=== PATIENT | female | born 1950 | race Caucasian/White ===

== ENCOUNTER 2017-02-05 21:27 | Inpatient (IN) | payer MEDICARE, BC ==
[2017-02-05] MEDS ORDERED: Ondansetron INJ* 2 MG/ML VIAL IV ONE (22:33)
[2017-02-05] MEDS ORDERED: NS 0.9% 1000 ML* 1,000 ML IV ONE (22:33)
[2017-02-05 23:10] LABS: Urine Bacteria Absent (Absent); Urine Bilirubin Negative (Negative); Urine Glucose Negative (Negative); Urine Nitrite Negative (Negative)
[2017-02-05 23:15] LABS: Hematocrit 37 % (35-47); Hemoglobin 12.3 g/dl (12.0-16.0); Mean Corpuscular HGB Conc 34 g/dl (31-36); Mean Corpuscular Hemoglobin 30 pg (27-31); Mean Corpuscular Volume 88 fL (80-97); Mean Platelet Volume 8 um3 (7.4-10.4); Red Blood Count 4.13 10^6/ul (4.0-5.4); Red Cell Distribution Width 14 % (10.5-15); White Blood Count 13.3 10^3/ul (3.5-10.8)
[2017-02-05 23:30] LABS: Albumin 4.2 g/dL (3.2-5.2); BUN/Creatinine Ratio 18.9 (8-20); EGFR African American 56.9 (>60); EGFR Non-African American 44.2 (>60); Globulin 2.9 g/dL (2-4); Potassium 3.9 mmol/L (3.5-5.0); Total Bilirubin 0.7 mg/dL (0.2-1.0); Total Protein 7.1 g/dL (6.4-8.9)
[2017-02-05 23:40] LABS: Troponin I 0.09 ng/mL (<0.04)
[2017-02-06] MEDS ORDERED: Iodixanol* (CONTRAST) 320 MG/ML 100 ML SDV IV ONE (00:16)
--- NOTE | 2017-02-06 02:12 | ED ---
Kizzy Alamo Rebecca, scribed for Valentin Chávez on 02/05/17 at 2226 . Abdominal Pain/Female - HPI Summary HPI Summary: Pt is a 67 y/o F who presents to ED c/o diffuse abdominal pain since yesterday. Pt reports the pain is in "my stomach," particularly worse in the umbilical region. Pain is currently severe, ranked 9/10. Treated with simethicone POTATO PEELER which did not change sx. Sx aggravated by nothing, alleviated by rest. Additionally c/o N/V, decreased PO intake, fever and chills. Denies diarrhea. Reports she has been unable to No PSHx on the abdomen. Reports that she recently stopped Furosemide last week. - History of Current Complaint Chief Complaint: EDAbdPain Stated Complaint: ABD PAIN/FEVER Time Seen by Provider: 02/05/17 22:12 Hx Obtained From: Patient Onset/Duration: Lasting Days - Startred yesterday, Still Present Severity Currently: Severe Pain Intensity: 9 Pain Scale Used: 0-10 Numeric Location: Diffuse - Particularly in the umbilical Aggravating Factor(s): Nothing Alleviating Factor(s): Other: - Rest Associated Signs and Symptoms: Positive: Fever, Nausea, Vomiting, Other: - decreased PO intake, chills Allergies/Adverse Reactions: Allergies Allergy/AdvReac Type Severity Reaction Status Date / Time No Known Allergies Allergy Verified 02/05/17 21:33 PMH/Surg Hx/FS Hx/Imm Hx Endocrine/Hematology History: Reports: Hx Thyroid Disease - Hypothyroid Cardiovascular History: Reports: Hx Hypercholesterolemia, Hx Hypertension Musculoskeletal History: Reports: Hx Arthritis - Cancer History Hx Chemotherapy: No Hx Radiation Therapy: No Infectious Disease History: No Infectious Disease History: Denies: Traveled Outside the [place] in Last 30 Days - Family History Known Family History: Positive: Hypertension, Other - RA - Social History Alcohol Use: None Substance Use Type: Reports: None Smoking Status (MU): Never Smoked Tobacco Review of Systems Positive: Fever, Chills Positive: Abdominal Pain - Diffuse, Vomiting, Nausea, Other - Decreased PO intake. Negative: Diarrhea All Other Systems Reviewed And Are Negative: Yes Physical Exam - Summary Physical Exam Summary: Appearance: Well appearing, no pain distress Skin: warm, dry, reflects adequate perfusion Head/face: normal Eyes: EOMI, BROOKE ENT: normal Neck: supple, nontender Respiratory: CTA, breath sounds present Cardiovascular: RRR, pulses symmetrical Abdomen: umbilicus and RLQ tenderness, soft Bowel: present Musculoskeletal: normal, strength/ROM intact Neuro: normal, sensory motor intact, A&Ox3 Triage Information Reviewed: Yes Vital Signs On Initial Exam: Initial Vitals Temp Pulse Resp BP Pulse Ox 99.1 F 82 16 180/90 97 02/05/17 21:34 02/05/17 21:34 02/05/17 21:34 02/05/17 21:34 02/05/17 21:34 Vital Signs Reviewed: Yes Diagnostics - Vital Signs Vital Signs Temp Pulse Resp BP Pulse Ox 02/05/17 21:34 99.1 F 82 16 180/90 97 - Laboratory Lab Results: Lab Results 02/05/17 02/05/17 02/05/17 Range/Units 22:50 23:03 23:03 WBC 13.3 H (3.5-10.8) 10^3/ul RBC 4.13 (4.0-5.4) 10^6/ul Hgb 12.3 (12.0-16.0) g/dl Hct 37 (35-47) % MCV 88 (80-97) fL MCH 30 (27-31) pg MCHC 34 (31-36) g/dl RDW 14 (10.5-15) % Plt Count 294 (150-450) 10^3/ul MPV 8 (7.4-10.4) um3 Neut % (Auto) 87.1 H (38-83) % Lymph % (Auto) 7.3 L (25-47) % Worth % (Auto) 5.2 (1-9) % Eos % (Auto) 0.1 (0-6) % Baso % (Auto) 0.3 (0-2) % Absolute Neuts (auto) 11.6 H (1.5-7.7) 10^3/ul Absolute Lymphs (auto) 1.0 (1.0-4.8) 10^3/ul Absolute Monos (auto) 0.7 (0-0.8) 10^3/ul Absolute Eos (auto) 0 (0-0.6) 10^3/ul Absolute Basos (auto) 0 (0-0.2) 10^3/ul Absolute Nucleated RBC 0 10^3/ul Nucleated RBC % 0 INR (Anticoag Therapy) 0.90 (0.89-1.11) APTT 28.4 (26.0-36.3) seconds Sodium (133-145) mmol/L Potassium (3.5-5.0) mmol/L Chloride (101-111) mmol/L Carbon Dioxide (22-32) mmol/L Anion Gap (2-11) mmol/L BUN (6-24) mg/dL Creatinine (0.51-0.95) mg/dL Est GFR ( Amer) (>60) Est GFR (Non-Af Amer) (>60) BUN/Creatinine Ratio (8-20) Glucose (70-100) mg/dL Lactic Acid (0.5-2.0) mmol/L Calcium (8.6-10.3) mg/dL Total Bilirubin (0.2-1.0) mg/dL AST (13-39) U/L ALT (7-52) U/L Alkaline Phosphatase (34-104) U/L Troponin I (<0.04) ng/mL Total Protein (6.4-8.9) g/dL Albumin (3.2-5.2) g/dL Globulin (2-4) g/dL Albumin/Globulin Ratio (1-3) Lipase (11.0-82.0) U/L Urine Color Yellow Urine Appearance Cloudy Urine pH 5.0 (5-9) Ur Specific [place] 1.016 (1.010-1.030) Urine Protein 1+(30 mg/dl) H (Negative) Urine Ketones Negative (Negative) Urine Blood Negative (Negative) Urine Nitrate Negative (Negative) Urine Bilirubin Negative (Negative) Urine Urobilinogen Negative (Negative) Ur Leukocyte Esterase 3+ H (Negative) Urine WBC (Auto) 3+(>20/hpf) H (Absent) Urine RBC (Auto) 2+(6-10/hpf) H (Absent) Ur Squamous Epith Cells Present H (Absent) Urine Bacteria Absent (Absent) Urine Glucose Negative (Negative) 02/05/17 02/05/17 Range/Units 23:03 23:03 WBC (3.5-10.8) 10^3/ul RBC (4.0-5.4) 10^6/ul Hgb (12.0-16.0) g/dl Hct (35-47) % MCV (80-97) fL MCH (27-31) pg MCHC (31-36) g/dl RDW (10.5-15) % Plt Count (150-450) 10^3/ul MPV (7.4-10.4) um3 Neut % (Auto) (38-83) % Lymph % (Auto) (25-47) % Worth % (Auto) (1-9) % Eos % (Auto) (0-6) % Baso % (Auto) (0-2) % Absolute Neuts (auto) (1.5-7.7) 10^3/ul Absolute Lymphs (auto) (1.0-4.8) 10^3/ul Absolute Monos (auto) (0-0.8) 10^3/ul Absolute Eos (auto) (0-0.6) 10^3/ul Absolute Basos (auto) (0-0.2) 10^3/ul Absolute Nucleated RBC 10^3/ul Nucleated RBC % INR (Anticoag Therapy) (0.89-1.11) APTT (26.0-36.3) seconds Sodium 137 (133-145) mmol/L Potassium 3.9 (3.5-5.0) mmol/L Chloride 108 (101-111) mmol/L Carbon Dioxide 22 (22-32) mmol/L Anion Gap 7 (2-11) mmol/L BUN 23 (6-24) mg/dL Creatinine 1.22 H (0.51-0.95) mg/dL Est GFR ( Amer) 56.9 (>60) Est GFR (Non-Af Amer) 44.2 (>60) BUN/Creatinine Ratio 18.9 (8-20) Glucose 136 H (70-100) mg/dL Lactic Acid 1.7 (0.5-2.0) mmol/L Calcium 10.0 (8.6-10.3) mg/dL Total Bilirubin 0.70 (0.2-1.0) mg/dL AST 19 (13-39) U/L ALT 37 (7-52) U/L Alkaline Phosphatase 94 (34-104) U/L Troponin I 0.09 H* (<0.04) ng/mL Total Protein 7.1 (6.4-8.9) g/dL Albumin 4.2 (3.2-5.2) g/dL Globulin 2.9 (2-4) g/dL Albumin/Globulin Ratio 1.4 (1-3) Lipase 17 (11.0-82.0) U/L Urine Color Urine Appearance Urine pH (5-9) Ur Specific [place] (1.010-1.030) Urine Protein (Negative) Urine Ketones (Negative) Urine Blood (Negative) Urine Nitrate (Negative) Urine Bilirubin (Negative) Urine Urobilinogen (Negative) Ur Leukocyte Esterase (Negative) Urine WBC (Auto) (Absent) Urine RBC (Auto) (Absent) Ur Squamous Epith Cells (Absent) Urine Bacteria (Absent) Urine Glucose (Negative) Result Diagrams: 02/05/17 23:03 02/05/17 23:03 Lab Statement: Any lab studies that have been ordered have been reviewed, and results considered in the medical decision making process. - Radiology CXR Xray Interpretation: No Acute Changes Radiology Interpretation Completed By: ED Physician - CT CT Abd/Pel CT Interpretation: Positive (See Comments) - Questionable cholecystitis without biliary duct dilation any further evaluate right upper quadrant ultrasound. Probable 7.3 cm left ovarian cyst and 4.8 cm right ovarian cyst, large enough to cause ocarian torsion, which should be furhter evaluated with pelvic ultrasound. Mild bilateral renal scarring. ED physician reviewed this radiology report and agrees. CT Interpretation Completed By: Radiologist - EKG 2246 Cardiac Rate: NL - 74 bpm EKG Rhythm: Sinus Rhythm EKG Interpretation: QS in the inferior leads. Re-Evaluation - Re-Evaluation First Eval Re-Evaluation Time: 01:13 Comment: Discussed CT results and plan to admit Abdominal Pain Fem Course/Dx - Course Course Of Treatment: Pt is a 67 y/o F who presents to ED c/o diffuse abdominal pain since yesterday. Pt reports the pain is in "my stomach," particularly worse in the umbilical region. Pain is currently severe, ranked 9/10. Treated with simethicone POTATO PEELER which did not change sx. Sx aggravated by nothing, alleviated by rest. Additionally c/o N/V, decreased PO intake, fever and chills. Denies diarrhea. Reports she has been unable to No PSHx on the abdomen. Reports that she recently stopped Furosemide last week. CXR reveals no acute findings, as read by ED physician. EKG is sinus rhythm with QS in the inferior leads. CT Abd/Pel reveals "Questionable cholecystitis without biliary duct dilation any further evaluate right upper quadrant ultrasound. Probable 7.3 cm left ovarian cyst and 4.8 cm right ovarian cyst, large enough to cause ocarian torsion, which should be furhter evaluated with pelvic ultrasound. Mild bilateral renal scarring." Troponin of 0.09, WBC of 13.3. Discussed care of pt with Dr. Simmons who accepts pt for admission. She will be admitted with Dx of elevated troponin, renal failure, acute cholecystitis and ovarian cyst. She understands and agrees. Elevated BP noted and advised to f/u with PCP. - Diagnoses Provider Diagnoses: Acute cholecystitis, Elevated troponin, Ovarian cyst, Renal failure - Provider Notifications Discussed Care Of Patient With: Rambo Simmons Time Discussed With Above Provider: 01:05 Instructed by Provider To: Other - Accepts pt for admission - Critical Care Time Critical Care Time: 30-74 min - 30 minutes Discharge - Discharge Plan Condition: Stable Disposition: ADMITTED TO [facility] documentation as recorded by the Kizzy coffey Rebecca accurately reflects the service I personally performed and the decisions made by , Valentin Chávez.
--- NOTE | 2017-02-06 03:23 | HP ---
H&P (Free Text) History and Physical: PCP: Arlin Donald MD Date/Time of Evaluation: 02/06/2017 0330 CC: abdominal pain HPI: Mrs Dalal is a 67F presenting with onset of pressure-like hypogastric abdominal pain Sunday 02/04 in the early afternoon which progressed to include subjective F/C & N/V prompting her to present for evaluation. Emesis was thin yellow without black or bloody content. She denies radiation of the pain, associated SOB, palpitation, light-headedness, sweats, or other issues. She denies exacerbating and alleviating factors. PMedHx HTN CKD stg 3b hypothyroidism Medications Nursing to reconcile. 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 Father passed in his 70s 2nd melanoma. ROS: as above; additionally stable exertional SOB; otherwise reviewed and all were negative Constitutional: NAD, normally developed, super morbidly obese white female vitals: Vital Signs Temp 37.1 C 02/05/17 23:15 Pulse 85 02/06/17 03:31 Resp 18 02/06/17 03:31 BP 175/83 02/06/17 03:31 Pulse Ox 96 02/06/17 03:31 Intake & Output 02/05/17 02/05/17 02/06/17 11:59 23:59 11:59 Intake Total 100 Balance 100 Weight 104.78 kg 104.78 kg Intake: IVPB 100 HEENM: atraumatic; sclera/conjunctiva: non-icteric/clear; hearing: clinically intact; oropharynx: clear, mucosa moist Neck: soft tissue: non-tender; thyroid: normal Pulmonary: clear to auscultation bilaterally, good aeration, no accessory muscle use CV: RR/RR, normal S1S2, no carotid bruit, no jugular venous distention, 2+ B DP/ PT, no edema Abdominal: soft, non-distended, moderate RUQ tenderness with 2nd focus of pain in the LLQ, positive voluntary guarding without no rebound/rigidity, normoactive bowel sounds, no hepatosplenomegaly or masses, no costovertebral angle tenderness Musculoskeletal: general: grossly intact without palpable tenderness Integumental: normal appearance and texture of exposed skin Psychiatric orientation: AA&O to PPS affect: calm mood: cooperative eye contact: fair content: reliable responses: timely insight: fair to good Testing: Lab Results 02/05/17 02/05/17 02/05/17 Range/Units 22:50 23:03 23:03 WBC 13.3 H (3.5-10.8) 10^3/ul RBC 4.13 (4.0-5.4) 10^6/ul Hgb 12.3 (12.0-16.0) g/dl Hct 37 (35-47) % MCV 88 (80-97) fL MCH 30 (27-31) pg MCHC 34 (31-36) g/dl RDW 14 (10.5-15) % Plt Count 294 (150-450) 10^3/ul MPV 8 (7.4-10.4) um3 Neut % (Auto) 87.1 H (38-83) % Lymph % (Auto) 7.3 L (25-47) % Todd % (Auto) 5.2 (1-9) % Eos % (Auto) 0.1 (0-6) % Baso % (Auto) 0.3 (0-2) % Absolute Neuts (auto) 11.6 H (1.5-7.7) 10^3/ul Absolute Lymphs (auto) 1.0 (1.0-4.8) 10^3/ul Absolute Monos (auto) 0.7 (0-0.8) 10^3/ul Absolute Eos (auto) 0 (0-0.6) 10^3/ul Absolute Basos (auto) 0 (0-0.2) 10^3/ul Absolute Nucleated RBC 0 10^3/ul Nucleated RBC % 0 INR (Anticoag Therapy) 0.90 (0.89-1.11) APTT 28.4 (26.0-36.3) seconds Sodium (133-145) mmol/L Potassium (3.5-5.0) mmol/L Chloride (101-111) mmol/L Carbon Dioxide (22-32) mmol/L Anion Gap (2-11) mmol/L BUN (6-24) mg/dL Creatinine (0.51-0.95) mg/dL Est GFR ( Amer) (>60) Est GFR (Non-Af Amer) (>60) BUN/Creatinine Ratio (8-20) Glucose (70-100) mg/dL Lactic Acid (0.5-2.0) mmol/L Calcium (8.6-10.3) mg/dL Total Bilirubin (0.2-1.0) mg/dL AST (13-39) U/L ALT (7-52) U/L Alkaline Phosphatase (34-104) U/L Troponin I (<0.04) ng/mL Total Protein (6.4-8.9) g/dL Albumin (3.2-5.2) g/dL Globulin (2-4) g/dL Albumin/Globulin Ratio (1-3) Lipase (11.0-82.0) U/L Urine Color Yellow Urine Appearance Cloudy Urine pH 5.0 (5-9) Ur Specific [place] 1.016 (1.010-1.030) Urine Protein 1+(30 mg/dl) H (Negative) Urine Ketones Negative (Negative) Urine Blood Negative (Negative) Urine Nitrate Negative (Negative) Urine Bilirubin Negative (Negative) Urine Urobilinogen Negative (Negative) Ur Leukocyte Esterase 3+ H (Negative) Urine WBC (Auto) 3+(>20/hpf) H (Absent) Urine RBC (Auto) 2+(6-10/hpf) H (Absent) Ur Squamous Epith Cells Present H (Absent) Urine Bacteria Absent (Absent) Urine Glucose Negative (Negative) 02/05/17 02/05/17 Range/Units 23:03 23:03 WBC (3.5-10.8) 10^3/ul RBC (4.0-5.4) 10^6/ul Hgb (12.0-16.0) g/dl Hct (35-47) % MCV (80-97) fL MCH (27-31) pg MCHC (31-36) g/dl RDW (10.5-15) % Plt Count (150-450) 10^3/ul MPV (7.4-10.4) um3 Neut % (Auto) (38-83) % Lymph % (Auto) (25-47) % Todd % (Auto) (1-9) % Eos % (Auto) (0-6) % Baso % (Auto) (0-2) % Absolute Neuts (auto) (1.5-7.7) 10^3/ul Absolute Lymphs (auto) (1.0-4.8) 10^3/ul Absolute Monos (auto) (0-0.8) 10^3/ul Absolute Eos (auto) (0-0.6) 10^3/ul Absolute Basos (auto) (0-0.2) 10^3/ul Absolute Nucleated RBC 10^3/ul Nucleated RBC % INR (Anticoag Therapy) (0.89-1.11) APTT (26.0-36.3) seconds Sodium 137 (133-145) mmol/L Potassium 3.9 (3.5-5.0) mmol/L Chloride 108 (101-111) mmol/L Carbon Dioxide 22 (22-32) mmol/L Anion Gap 7 (2-11) mmol/L BUN 23 (6-24) mg/dL Creatinine 1.22 H (0.51-0.95) mg/dL Est GFR ( Amer) 56.9 (>60) Est GFR (Non-Af Amer) 44.2 (>60) BUN/Creatinine Ratio 18.9 (8-20) Glucose 136 H (70-100) mg/dL Lactic Acid 1.7 (0.5-2.0) mmol/L Calcium 10.0 (8.6-10.3) mg/dL Total Bilirubin 0.70 (0.2-1.0) mg/dL AST 19 (13-39) U/L ALT 37 (7-52) U/L Alkaline Phosphatase 94 (34-104) U/L Troponin I 0.09 H* (<0.04) ng/mL Total Protein 7.1 (6.4-8.9) g/dL Albumin 4.2 (3.2-5.2) g/dL Globulin 2.9 (2-4) g/dL Albumin/Globulin Ratio 1.4 (1-3) Lipase 17 (11.0-82.0) U/L Urine Color Urine Appearance Urine pH (5-9) Ur Specific [place] (1.010-1.030) Urine Protein (Negative) Urine Ketones (Negative) Urine Blood (Negative) Urine Nitrate (Negative) Urine Bilirubin (Negative) Urine Urobilinogen (Negative) Ur Leukocyte Esterase (Negative) Urine WBC (Auto) (Absent) Urine RBC (Auto) (Absent) Ur Squamous Epith Cells (Absent) Urine Bacteria (Absent) Urine Glucose (Negative) ECG, personally reviewed: NSR rate 74, no ischemia CXR, personally reviewed: no acute process CT abd/pel W, personally reviewed: IMPRESSION: Questionable cholecystitis without biliary duct dilatation any further evaluate right upper quadrant ultrasound. Probable 7.3cm left ovarian cyst and 4.8cm right ovarian cyst, large enough to cause ovarian torsion, which should be further evaluated with pelvic ultrasound. Mild bilateral renal scarring. US abdomen limited, RUQ: IMPRESSION: High suspicion for cholecystitis secondary to 2.6cm stone in the gallbladder neck. Enlarged fatty liver. US transabdominal/transvaginal: IMPRESSION: 4.7cm simple right ovarian cyst and 6.8cm simple left ovarian cyst without torsion or free fluid. Impression: 67F presenting with abdominal pain found to have acute cholecystitis on CT & US along with an incidental finding of indeterminate troponin DIAGNOSIS & PLAN Primary acute cholecystitis : IVFs : ABX : pain control : surgical consult in AM : supportive care elevated troponin : suspect demand ischemia : trend : check ECHO : telemetry : supplemental oxygen : aspirin : metoprolol : consider cardiology consult in AM for pre-operative evaluation Secondary HTN : review meds once reconciled hypothyroidism : review meds once reconciled Admission Rational: inpatient for acute cholecystectomy and indeterminate troponin not expected to be adequately evaluated and managed w/i 48h to allow for discharge DVTp: SCDs Code Status: full HCP: [facility]
[2017-02-06] MEDS ORDERED: Acetaminophen TAB* 325 MG PO PRN (03:53)
[2017-02-06] MEDS ORDERED: Melatonin (NF) 3 MG TAB PO PRN (04:18)
[2017-02-06] MEDS ORDERED: Metoprolol Tartrate TAB* 25 MG PO ONE (04:20)
[2017-02-06] MEDS ORDERED: Ondansetron INJ* 2 MG/ML VIAL IV PRN (04:20)
[2017-02-06] MEDS ORDERED: Aspirin Low Dose CHEW TAB* 81 MG PO ONE (04:20)
[2017-02-06] MEDS: NS 0.9% 1000 ML* 1,000 ML IV SCH ×2 (04:42→22:43)
[2017-02-06] MEDS: Omeprazole CAP* 20 MG PO SCH (05:07)
[2017-02-06] MEDS: HYDROmorphone* 1 MG/ML 1 ML SYR IV PRN (05:07)
[2017-02-06 05:33] LABS: Hematocrit 35 % (35-47); Hemoglobin 11.5 g/dl (12.0-16.0); Mean Corpuscular HGB Conc 33 g/dl (31-36); Mean Corpuscular Hemoglobin 29 pg (27-31); Mean Corpuscular Volume 88 fL (80-97); Mean Platelet Volume 8 um3 (7.4-10.4); Red Blood Count 3.96 10^6/ul (4.0-5.4); Red Cell Distribution Width 13 % (10.5-15); White Blood Count 11.7 10^3/ul (3.5-10.8)
[2017-02-06 05:46] LABS: Calcium 9.5 mg/dL (8.6-10.3); EGFR African American 58.5 (>60); EGFR Non-African American 45.5 (>60); Potassium 3.8 mmol/L (3.5-5.0)
[2017-02-06 05:57] LABS: Troponin I 0.12 ng/mL (<0.04)
[2017-02-06] MEDS: Levothyroxine TAB* 125 MCG TAB PO SCH (06:54)
--- NOTE | 2017-02-06 07:42 | RAD ---
INDICATION: Abdominal pain. COMPARISON: There are no prior studies available for comparison. TECHNIQUE: Dual-energy PA and lateral views of the chest were obtained. FINDINGS: The heart is within normal limits in size. Mediastinal and hilar contours appear within normal limits. The lungs are underinflated. There are small linear densities at the left lung base most consistent with subsegmental atelectasis. The lungs are otherwise clear. No pleural effusion is seen. No free intraperitoneal air is noted. There is widening of the left acromioclavicular joint most consistent with chronic AC separation. IMPRESSION: NO EVIDENCE FOR ACTIVE CARDIOPULMONARY DISEASE.
--- NOTE | 2017-02-06 07:55 | RAD ---
CLINICAL HISTORY: Diverticulitis, abdominal pain COMPARISON: None TECHNIQUE: Multiple contiguous axial CT scans were obtained of the abdomen and pelvis after the administration of intravenous contrast. Coronal and sagittal multiplanar reformations are submitted for review. Oral contrast was not administered. Delayed images were obtained through the abdomen and pelvis. FINDINGS: LUNG BASES: The lung bases are clear. LIVER: The liver is diffusely low in attenuation compared to the spleen. There are no focal hepatic parenchymal masses. The liver measures 21 cm in long axis. BILE DUCTS: There is no intrahepatic or extrahepatic biliary dilatation. GALLBLADDER: A gallstone is noted. There is minimal gallbladder wall thickening. PANCREAS: The pancreas is normal, without mass or ductal dilatation. SPLEEN: Normal in size and appearance. UPPER GI TRACT: Evaluation of the gastrointestinal tract is limited by incomplete gastric distention. The upper GI tract is unremarkable. SMALL BOWEL AND MESENTERY: The small bowel is normal in contour, course, and caliber. There is no obstruction or dilatation. COLON: The colon is normal in contour, course, caliber. There is no pericolonic inflammatory change. ADRENALS: Normal bilaterally. KIDNEYS: The kidneys are normal in shape, size, contour, and axis. There is no hydronephrosis or nephrolithiasis. BLADDER: The bladder is smooth in contour. PELVIC ORGANS: The uterus is fibroid. There is a 6.7 cm left ovarian cyst. There is a 4.1 cm right ovarian cyst. AORTA: The aorta is normal. IVC: Unremarkable LYMPH NODES: There is no lymphadenopathy by size criteria. ABDOMINAL WALL: There is no evidence for abdominal wall hernia. BONES AND SOFT TISSUES: Degenerative changes are noted. The patient is status post left hip arthroplasty OTHER: None IMPRESSION: 1. CHOLELITHIASIS WITH MILD GALLBLADDER WALL THICKENING. 2. HEPATOMEGALY WITH FATTY INFILTRATION OF THE LIVER. 3. FIBROID UTERUS. 4. BILATERAL OVARIAN CYSTS MEASURING UP TO 6.7 CM.
--- NOTE | 2017-02-06 08:02 | RAD ---
INDICATION: Bilateral pelvic pain COMPARISON: Same day CT of the abdomen and pelvis that demonstrates to low attenuation structures in the bilateral adnexa. TECHNIQUE: Real-time transabdominal and transvaginal ultrasound examination of the female pelvis including grayscale and Doppler color flow imaging. FINDINGS: Uterus: The uterus is normal in size and echogenicity measuring 8.1 x 4.4 x 6.6 cm. The endometrial stripe is smooth and uniform measuring 6 mm in thickness. Ovaries: The right and left ovary measure 8.8 x 7.0 x 7.2 cm and 5.3 x 6.1 x 6.3 cm, respectively. Normal arterial and venous waveforms are identified. Within the left ovary there is an anechoic and avascular structure measuring 6.8 x 5.5 x 5.6 cm. In the right ovary there is a more echogenic and avascular structure measuring 4.6 x 4.7 x 5.3 cm. There is no free fluid in the cul-de-sac. IMPRESSION: Large anechoic and avascular structures in the bilateral ovaries are abnormal for a postmenopausal woman please correlate to hormone replacement therapy. Depending on other clinical parameters further characterization can be made with MRI of the pelvis with and without contrast. If no further imaging is acquired at this time short-term interval sonographic follow-up imaging is advised. Management of Asymptomatic Ovarian and Other Adnexal Cysts Imaged at US: Society of Radiologists in Ultrasound Consensus Conference Statement, Christi Coto et al., Radiology, Feb 2010, Vol. 256: 943-954. [email or web address]/doi/[email or web address]
--- NOTE | 2017-02-06 08:13 | RAD ---
HISTORY: Right upper quadrant pain. COMPARISONS: Same day CT of the abdomen and pelvis TECHNIQUE: Multiple transverse and longitudinal ultrasound images were obtained of the right upper quadrant. FINDINGS: LIVER: The liver exhibits mild increased homogenous echogenicity and is top normal measuring 19.7 cm in greatest dimension. Normal hepatic and portal venous blood flow is duplicated with color flow imaging. There is no gross intrahepatic biliary duct dilatation. GALLBLADDER AND EXTRAHEPATIC BILIARY DUCT: Within the dependent portion of the gallbladder there is a echogenic and shadowing stone measuring 2.6 cm in greatest dimension. The dean are mildly thickened measuring 4 mm in thickness. There is trace pericholecystic fluid. The common bile duct measures a maximum diameter of 5 mm. PANCREAS: Overlying bowel gas prevents meaningful visualization of the pancreas. RIGHT KIDNEY: The right kidney is normal in size, morphology and echogenicity. AORTA AND IVC: The visualized portions are normal in appearance and not pathologically dilated. IMPRESSION: 1. IN THE CORRECT CLINICAL SETTING THESE SONOGRAPHIC FINDINGS COULD BE CONSISTENT WITH ACUTE CHOLECYSTITIS. IF CLINICALLY WARRANTED FURTHER OBJECTIVE CHARACTERIZATION CAN BE MADE WITH A HIDA SCAN. 2. LIKELY HEPATIC STEATOSIS OR OTHER CHRONIC INFILTRATIVE DISEASE OF THE LIVER.
--- NOTE | 2017-02-06 08:39 | ECHO ---
Patient: JAMI REAL [facility] Rec#: [id number] : 1950 Date: 02/06/2017 Age: 67y Height: 142.24 cm / 56.0 in Weight: 105.69 kg / 232.9 lbs Sex: F BSA: 1.89 Room#: [facility] Admit Date#: 02/06/2017 Type: Inpatient Referring: Rambo Simmons MD Reading: Lucius Stroud MD Converter Skimmer: [facility] Indication: SOB, elevated troponin levels. BP: 161/69 HR: 72 Rhythm: NSR Findings History: HTN, CKD IIIb, hypothyroidism, former heavy ETOH use, HLD. Technical Comments: The study quality is fair. The study is technically limited due to patient body habitus. Completed at 0830. Left Ventricle: The left ventricular chamber size is normal. Mild concentric left ventricular hypertrophy is observed. Global left ventricular wall motion and contractility are within normal limits. There is normal left ventricular systolic function. The estimated ejection fraction is 60-65%. Abnormal left ventricular diastolic function is observed. There is an E to A reversal in the mitral valve flow pattern suggestive of diastolic dysfunction. Left Atrium: The left atrial chamber size is normal. Right Ventricle: Moderator Band present. The right ventricular cavity size is normal. The right ventricular global systolic function is normal. Right Atrium: The right atrial cavity size is normal. Aortic Valve: The aortic valve is trileaflet. The aortic valve leaflets are mildly thickened. There is a trace of aortic regurgitation. There is no evidence of aortic stenosis. Mitral Valve: The mitral valve leaflets are mildly thickened. There is trace to mild mitral regurgitation. There is no evidence of mitral stenosis. Tricuspid Valve: The tricuspid valve leaflets are normal. There is mild to moderate tricuspid regurgitation. There is evidence of mild pulmonary hypertension. There is no tricuspid stenosis. Pulmonic Valve: The pulmonic valve appears normal. There is mild pulmonic regurgitation. There is no pulmonic stenosis. Pericardium: There is no significant pericardial effusion. A pericardial fat pad is visualized. Aorta: There is no dilatation of the ascending aorta. There is no dilatation of the aortic arch. There is no dilation of the aortic root. Pulmonary Artery: The main pulmonary artery is not well visualized. Venous: The inferior vena cava appears normal in size. There is a greater than 50% respiratory change in the inferior vena cava dimension. Summary: There was not any prior study for comparison. Conclusions Global left ventricular wall motion and contractility are within normal limits. There is normal left ventricular systolic function. The estimated ejection fraction is 60-65%. There is an E to A reversal in the mitral valve flow pattern suggestive of diastolic dysfunction. The right ventricular global systolic function is normal. There is a trace of aortic regurgitation. There is no evidence of aortic stenosis. There is trace to mild mitral regurgitation. There is mild to moderate tricuspid regurgitation. There is evidence of mild pulmonary hypertension. There is no significant pericardial effusion. Measurements Name Value Normal Range RVIDd (AP) 2D 3.2 cm (0.9 - 2.6) RVDdMajor (2D) 4.1 cm (2.2 - 4.4) RAd ISD 4CH 4.7 cm (3.4 - 4.9) RA (A4C)W 3.7 cm (2.9 - 4.6) IVSd (2D) 1.1 cm (0.6 - 1) LVPWd (2D) 1.1 cm (0.6 - 1) LVIDd (2D) 4.3 cm (3.6 - 5.4) LVIDs (2D) 2.3 cm - LV FS (2D) 47 % (25 - 45) Aortic Annulus 2 cm (1.4 - 2.6) Ao root diameter (2D) 2.5 cm (2.1 - 3.5) Ascending Ao 3.2 cm (2.1 - 3.4) Aortic arch 2.3 cm (1.8 - 3.4) LA dimension (AP) 2D 3.8 cm (2.3 - 3.8) LAd ISD 4CH 5.3 cm (2.9 - 5.3) LA ISD 4CH W 4.1 cm (2.5 - 4.5) Name Value Normal Range LA ESV SP 4CH (A/L) 56 ml - LA ESV SP 2CH (A/L) 56 ml - LA ESV BP (A/L) 56 ml - LA ESV BP (A/L) index 29.4 ml/m2 - LA ESV SP 4CH (MOD) 51 ml - LA ESV SP 2CH (MOD) 52 ml - Name Value Normal Range MV E-wave Vmax 0.92 m/sec - MV deceleration time 237.5 msec - MV A-wave Vmax 1.06 m/sec - MV E:A ratio 0.87 ratio - LV septal e' Vmax 0.09 m/sec - LV lateral e' Vmax 0.09 m/sec - LV E:e' septal ratio 10.22 ratio - LV E:e' lateral ratio 10.22 ratio - Name Value Normal Range AV Vmax 2.2 m/sec - AV VTI 42.4 cm - AV peak gradient 19.11 mmHg - AV mean gradient 7.97 mmHg - LVOT Vmax 1.2 m/sec - LVOT VTI 30 cm - LVOT peak gradient 5.9 mmHg - LVOT mean gradient 3.72 mmHg - DRISS Vmax 0.9 m/sec - Name Value Normal Range TR Vmax 2.9 m/sec - TR peak gradient 34 mmHg - RAP 3 mmHg - RVSP 37 mmHg - IVC diameter 1.5 cm - Name Value Normal Range PV Vmax 1.22 m/sec - PV peak gradient 5.93 mmHg - CO end-diastolic Vmax 1.54 m/sec -
[2017-02-06] MEDS: Lisinopril TAB* 10 MG PO SCH (08:40)
[2017-02-06] MEDS: Atorvastatin* 20 MG TAB PO SCH (08:40)
[2017-02-06] MEDS: Spironolactone TAB* 25 MG PO SCH (08:41)
[2017-02-06] MEDS: Docusate CAP* 100 MG PO SCH ×2 (08:41→22:00)
--- NOTE | 2017-02-06 11:29 | CONS ---
CONSULTATION REPORT: DATE OF CONSULTATION: 02/06/17 INDICATION FOR CONSULTATION: Abnormal troponin level. HISTORY OF PRESENT ILLNESS: The patient is a 67-year-old female with a history of mild renal insuff iciency, obesity, hypertension, hypothyroidism, who was admitted to the hospital with cholecystitis. The patient states that yesterday she was at home. She started having severe right upper quadrant pain with fevers and chills, nausea and vomiting. She came to the emergency room. Gallbladder ult rasound showed thickening of the gallbladder with gallstones. [facility] She was given IV antibiotics and kept n.p.o. She did not require an NG tube. The p atient's initial troponin level was 0.09. Second troponin level was 0.13. Third troponin 0.12. e patient's EKG shows normal sinus rhythm with normal axis and intervals. Her echocardiogram today demonstrated normal LV size and systolic function and no significant valvular abnormalities. In speaking with the patient, I cannot elicit any specific cardiac symptoms in the last month. She denied any chest pain. She denied any shortness of breath. She denied any orthopnea or PND. She d enied any palpitations. The patient does have significant obesity. Overall her activity level is s everely limited. She is unable walk up flight of stairs without stopping multiple times because of her weight. PAST MEDICAL HISTORY: Significant for hypertension, hypothyroidism, mild renal insufficiency. PAST SURGICAL HISTORY: Left total hip replacement, left shoulder surgery, section x3. ALLERGIES: No known drug allergies. OUTPATIENT MEDICATIONS: 1. Atenolol 25 mg a day. 2. Tramadol 50 mg three times a day as needed. 3. Benazepril 20 mg a day. 4. Atorvastatin 20 mg a day. 5. Spironolactone 25 mg a day. 6. Levoxyl 125 mcg a day. SOCIAL HISTORY: She is . She does have two daughters that live in the area. She denies any tobacco or alcohol use. She is retired. FAMILY HISTORY: Noncontributory. PHYSICAL EXAMINATION: Height is 4 feet 8 inches, weight is 232 pounds. Temperature 98.4, heart rate is 71, blood pressure 160/81, respiratory rate is 18, oxygen saturation 95% on room air. Sclerae a nicteric. Oropharynx is pink without erythema. Carotids are 2+ without bruits. JVD is normal. Th yroid is normal. Cardiac Exam: S1, S2 without any murmurs, rubs or gallops. Lungs: Clear to auscu ltation bilaterally. There is no dullness to percussion. Abdomen is obese, soft, mild right upper quadrant tenderness. There are decreased bowel sounds. There is no hepatosplenomegaly. Extremities show no edema. She has 2+ pulses throughout. The patient is awake and alert and oriented. She mo ves all 4 extremities equally. DIAGNOSTIC STUDIES/LAB DATA: White count 11.7, hemoglobin 11, hematocrit 35, platelet count 281. C hemistries are within normal limits. BUN 19, creatinine 1.19. Troponin levels are as above. AST and ALT are within normal limits. Again, her echocardiogram shows normal LV size and systolic function. No significant valvular abnor malities. EKG shows normal sinus rhythm with normal axis and intervals. CT of the abdomen shows ch olelithiasis with thickening of the gallbladder wall. IMPRESSION: This is a 67-year-old female admitted to the hospital with cholecystitis. The patient does have minimally elevated troponin levels of unclear significance. Her echocardiogram and EKG ar e unremarkable. The patient's overall activity level is severely limited. Thus, I believe a stress test is warranted prior to going to the operating room to risk stratify her for her procedure. Ris ks and benefits of the stress test were described in detail. The patient is willing to proceed. [id number]/[facility] #: [id number]
--- NOTE | 2017-02-06 12:52 | PN ---
Progress Note - Progress Note Date of Service: 02/06/17 SOAP: Subjective: [Pt presents laying on recliner surrounded by family members and speaking with Dr. Rankin. Pt appears comfortable and abdominal pain has diminished to 0/10 since arriving to the ER yesterday. Her only current complaint is a headache that started yesterday in the ER. Severe, sharp and constant pain started abruptly on Sunday. Pt admits to eating pancakes and infante on Sunday morning, hours after the pain started. Later that night she began to vomit "yellow foam. " Pt denies any previous episodes similar to this one. Concerning her elevated troponin level, pt admits to being followed by a clay washer due to her HTN and CKD. She had a stress test "years ago" which was negative. ] Objective: [ Vital Signs - 8 hr 02/06/17 02/06/17 02/06/17 06:07 07:20 08:00 Temperature 98.4 F Pulse Rate 71 Respiratory 18 24 26 Rate Blood Pressure 159/81 (mmHg) O2 Sat by Pulse 95 Oximetry Intake & Output 02/04/17 02/05/17 02/06/17 02/07/17 06:59 06:59 06:59 06:59 Intake Total 1100 300 Balance 1100 300 Weight 232 lb 11.2 oz 232 lb 11.2 oz Intake: IV Fluids 1000 IVPB 100 Oral 0 300 Other: Estimated Void Medium # Bowel Movements 0 # Voids 1 Laboratory Tests 02/05/17 02/05/17 02/06/17 22:50 23:03 03:55 WBC RBC Hgb Neut % (Auto) Lymph % (Auto) Absolute Neuts (auto) Creatinine 1.22 H Glucose 136 H Troponin I 0.09 H* 0.13 H* Urine Protein 1+(30 mg/dl) H Ur Leukocyte Esterase 3+ H Urine WBC (Auto) 3+(>20/hpf) H Urine RBC (Auto) 2+(6-10/hpf) H Ur Squamous Epith Cells Present H 02/06/17 02/06/17 04:55 04:55 WBC 11.7 H RBC 3.96 L Hgb 11.5 L Neut % (Auto) 84.4 H Lymph % (Auto) 9.1 L Absolute Neuts (auto) 9.8 H Creatinine 1.19 H Glucose 146 H Troponin I 0.12 H* Urine Protein Ur Leukocyte Esterase Urine WBC (Auto) Urine RBC (Auto) Ur Squamous Epith Cells PEX General: 67 y/o morbid obese women laying comfortably in recliner in NAD. Tmax of 99.1 F over last 24 hrs. Heart: RRR Lungs: CTA Abdomen: +BS. Slightly tympanic to percussion in RUQ. Nontender to palpate in all for quadrants. Positive Granado's sign Extremities: mild ankle edema. ] Assessment: [acute cholecystitis elevated troponin] Plan: [nuclear stress test planned for later today. Update Jay Thurman and surgical team about possible elective cholecystectomy. ]
[2017-02-06] MEDS: traMADol TAB* 50 MG PO PRN ×2 (13:06→19:13)
[2017-02-06] MEDS ORDERED: Morphine INJ* 2 MG/ML 1 ML SYRINGE IV ONE (16:00)
[2017-02-06] MEDS: oxyCODONE TAB* 5 MG TAB PO PRN ×2 (16:02→22:43)
--- NOTE | 2017-02-06 17:05 | PN ---
Subjective Date of Service: 02/06/17 Interval History: Seen with son, daughter and daughter in law Pain well controlled Feels hungry Pain was previously diffuse now localized to RUQ No emesis since yesterday Objective Active Medications: Acetaminophen (Tylenol Tab*) 650 mg PO Q6H PRN PRN Reason: FEVER/PAIN Atenolol (Tenormin Tab*) 25 mg PO DAILY [facility] Atorvastatin Calcium (Lipitor*) 20 mg PO DAILY [facility] Last Admin: 02/06/17 08:40 Dose: 20 mg Docusate Sodium (Colace Cap*) 200 mg PO BID [facility] Last Admin: 02/06/17 08:41 Dose: 200 mg Hydromorphone HCl (Dilaudid Iv*) 0.5 mg IV Q2H PRN PRN Reason: PAIN Last Admin: 02/06/17 05:07 Dose: 0.5 mg Sodium Chloride (Ns 0.9% 1000 Ml*) 1,000 mls @ 125 mls/hr IV PER RATE [facility] Last Admin: 02/06/17 04:42 Dose: 125 mls/hr Piperacillin Sod/Tazobactam (Sod 3.375 gm/ Sodium Chloride) 100 mls @ 25 mls/ hr IVPB Q8H [facility] Last Admin: 02/06/17 14:52 Dose: 25 mls/hr Levothyroxine Sodium (Synthroid Tab*) 125 mcg PO DAILY@0600 [facility] Last Admin: 02/06/17 06:54 Dose: 125 mcg Lisinopril (Prinivil Tab*) 20 mg PO DAILY [facility] Last Admin: 02/06/17 08:40 Dose: 20 mg Melatonin (Melatonin (Nf)) 3 mg PO BEDTIME PRN; Protocol PRN Reason: Sleep Omeprazole (Prilosec Cap*) 20 mg PO DAILY@0600 [facility] Last Admin: 02/06/17 05:07 Dose: 20 mg Ondansetron HCl (Zofran Inj*) 4 mg IV Q6H PRN PRN Reason: NAUSEA Oxycodone HCl (Roxycodone Tab*) 10 mg PO Q4H PRN PRN Reason: PAIN Last Admin: 02/06/17 16:02 Dose: 10 mg Spironolactone (Aldactone Tab*) 25 mg PO DAILY [facility] Last Admin: 02/06/17 08:41 Dose: 25 mg Tramadol HCl (Ultram*) 50 mg PO TID PRN PRN Reason: PAIN Last Admin: 02/06/17 13:06 Dose: 50 mg Vital Signs 02/06/17 02/06/17 02/06/17 04:00 04:23 05:07 Temperature 97.7 F Pulse Rate 84 85 Respiratory 18 18 Rate Blood Pressure 159/89 161/69 (mmHg) O2 Sat by Pulse 95 98 Oximetry 02/06/17 02/06/17 02/06/17 06:07 07:20 08:00 Temperature 98.4 F Pulse Rate 71 Respiratory 18 24 26 Rate Blood Pressure 159/81 (mmHg) O2 Sat by Pulse 95 Oximetry 02/06/17 02/06/17 02/06/17 11:35 13:06 15:33 Temperature 98.6 F 98.3 F Pulse Rate 71 79 Respiratory 24 26 22 Rate Blood Pressure 162/73 149/76 (mmHg) O2 Sat by Pulse 96 97 Oximetry 02/06/17 16:02 Temperature Pulse Rate Respiratory 24 Rate Blood Pressure (mmHg) O2 Sat by Pulse Oximetry Oxygen Devices in Use Now: Nasal Cannula Appearance: NAD, sitting in chair Eyes: No Scleral Icterus, PERRLA Ears/Nose/Mouth/Throat: Clear Oropharnyx, Mucous Membranes Moist Neck: NL Appearance and Movements; NL JVP, Trachea Midline Respiratory: Symmetrical Chest Expansion and Respiratory Effort, Clear to Auscultation Cardiovascular: RRR, - - soft [place] RUSB Abdominal: No Hepatosplenomegaly, - - soft, TTP RUQ, ND, +bs Lymphatic: No Cervical Adenopathy Extremities: No Edema, No Clubbing, Cyanosis Skin: No Rash or Ulcers Neurological: Alert and Oriented x 3, - - [id number] Result Diagrams: 02/06/17 04:55 02/06/17 04:55 Additional Lab and Data: Lab Results 02/05/17 02/05/17 02/05/17 Range/Units 22:50 23:03 23:03 WBC 13.3 H (3.5-10.8) 10^3/ul RBC 4.13 (4.0-5.4) 10^6/ul Hgb 12.3 (12.0-16.0) g/dl Hct 37 (35-47) % MCV 88 (80-97) fL MCH 30 (27-31) pg MCHC 34 (31-36) g/dl RDW 14 (10.5-15) % Plt Count 294 (150-450) 10^3/ul MPV 8 (7.4-10.4) um3 Neut % (Auto) 87.1 H (38-83) % Lymph % (Auto) 7.3 L (25-47) % [place] % (Auto) 5.2 (1-9) % Eos % (Auto) 0.1 (0-6) % Baso % (Auto) 0.3 (0-2) % Absolute Neuts (auto) 11.6 H (1.5-7.7) 10^3/ul Absolute Lymphs (auto) 1.0 (1.0-4.8) 10^3/ul Absolute Monos (auto) 0.7 (0-0.8) 10^3/ul Absolute Eos (auto) 0 (0-0.6) 10^3/ul Absolute Basos (auto) 0 (0-0.2) 10^3/ul Absolute Nucleated RBC 0 10^3/ul Nucleated RBC % 0 INR (Anticoag Therapy) 0.90 (0.89-1.11) APTT 28.4 (26.0-36.3) seconds Sodium (133-145) mmol/L Potassium (3.5-5.0) mmol/L Chloride (101-111) mmol/L Carbon Dioxide (22-32) mmol/L Anion Gap (2-11) mmol/L BUN (6-24) mg/dL Creatinine (0.51-0.95) mg/dL Est GFR ( Amer) (>60) Est GFR (Non-Af Amer) (>60) BUN/Creatinine Ratio (8-20) Glucose (70-100) mg/dL Lactic Acid (0.5-2.0) mmol/L Calcium (8.6-10.3) mg/dL Total Bilirubin (0.2-1.0) mg/dL AST (13-39) U/L ALT (7-52) U/L Alkaline Phosphatase (34-104) U/L Troponin I (<0.04) ng/mL Total Protein (6.4-8.9) g/dL Albumin (3.2-5.2) g/dL Globulin (2-4) g/dL Albumin/Globulin Ratio (1-3) Lipase (11.0-82.0) U/L Urine Color Yellow Urine Appearance Cloudy Urine pH 5.0 (5-9) Ur Specific [place] 1.016 (1.010-1.030) Urine Protein 1+(30 mg/dl) H (Negative) Urine Ketones Negative (Negative) Urine Blood Negative (Negative) Urine Nitrate Negative (Negative) Urine Bilirubin Negative (Negative) Urine Urobilinogen Negative (Negative) Ur Leukocyte Esterase 3+ H (Negative) Urine WBC (Auto) 3+(>20/hpf) H (Absent) Urine RBC (Auto) 2+(6-10/hpf) H (Absent) Ur Squamous Epith Cells Present H (Absent) Urine Bacteria Absent (Absent) Urine Glucose Negative (Negative) 02/05/17 02/05/17 Range/Units 23:03 23:03 WBC (3.5-10.8) 10^3/ul RBC (4.0-5.4) 10^6/ul Hgb (12.0-16.0) g/dl Hct (35-47) % MCV (80-97) fL MCH (27-31) pg MCHC (31-36) g/dl RDW (10.5-15) % Plt Count (150-450) 10^3/ul MPV (7.4-10.4) um3 Neut % (Auto) (38-83) % Lymph % (Auto) (25-47) % [place] % (Auto) (1-9) % Eos % (Auto) (0-6) % Baso % (Auto) (0-2) % Absolute Neuts (auto) (1.5-7.7) 10^3/ul Absolute Lymphs (auto) (1.0-4.8) 10^3/ul Absolute Monos (auto) (0-0.8) 10^3/ul Absolute Eos (auto) (0-0.6) 10^3/ul Absolute Basos (auto) (0-0.2) 10^3/ul Absolute Nucleated RBC 10^3/ul Nucleated RBC % INR (Anticoag Therapy) (0.89-1.11) APTT (26.0-36.3) seconds Sodium 137 (133-145) mmol/L Potassium 3.9 (3.5-5.0) mmol/L Chloride 108 (101-111) mmol/L Carbon Dioxide 22 (22-32) mmol/L Anion Gap 7 (2-11) mmol/L BUN 23 (6-24) mg/dL Creatinine 1.22 H (0.51-0.95) mg/dL Est GFR ( Amer) 56.9 (>60) Est GFR (Non-Af Amer) 44.2 (>60) BUN/Creatinine Ratio 18.9 (8-20) Glucose 136 H (70-100) mg/dL Lactic Acid 1.7 (0.5-2.0) mmol/L Calcium 10.0 (8.6-10.3) mg/dL Total Bilirubin 0.70 (0.2-1.0) mg/dL AST 19 (13-39) U/L ALT 37 (7-52) U/L Alkaline Phosphatase 94 (34-104) U/L Troponin I 0.09 H* (<0.04) ng/mL Total Protein 7.1 (6.4-8.9) g/dL Albumin 4.2 (3.2-5.2) g/dL Globulin 2.9 (2-4) g/dL Albumin/Globulin Ratio 1.4 (1-3) Lipase 17 (11.0-82.0) U/L Urine Color Urine Appearance Urine pH (5-9) Ur Specific [place] (1.010-1.030) Urine Protein (Negative) Urine Ketones (Negative) Urine Blood (Negative) Urine Nitrate (Negative) Urine Bilirubin (Negative) Urine Urobilinogen (Negative) Ur Leukocyte Esterase (Negative) Urine WBC (Auto) (Absent) Urine RBC (Auto) (Absent) Ur Squamous Epith Cells (Absent) Urine Bacteria (Absent) Urine Glucose (Negative) Assess/Plan/Problems-Billing Assessment: 67 yo F h/o CKD, HTN p/w abdominal pain found with acute cholecystitis, elevated troponin, and incidentally noted ovarian masses - Patient Problems (1) Acute cholecystitis Comment: c/w avriln appreciate surgery assistance stress test for furtehr risk stratification prior to surgery (2) Ovarian tumor Comment: differential includes malignant and non malignant tumors (ie cysts) HUMAN RESOURCES COMPENSATION ANALYST consulted and to be contacted by surgery. Potential for involvement at time of cholecystectomy. Otherwise, additional imaging to follow ie MRI or short interval TVUS (3) Hypertension Comment: Aldactone, lisinopril, atenolol (4) Elevated troponin Comment: stress test tomorrow (5) CKD (chronic kidney disease) stage 3, GFR 30-59 ml/min Comment: stable (6) DVT prophylaxis Comment: SCDs
--- NOTE | 2017-02-06 21:23 | CONS ---
CC: Dr. Padilla, [place], [place] SURGICAL CONSULT REPORT: DATE OF CONSULT: 02/06/17 ATTENDING SURGEON: Dr. Regan Denson. CHIEF COMPLAINT: Abdominal pain. HISTORY OF PRESENT ILLNESS: This is a 67-year-old female, who beginning on Sunday noted onset of abdominal pain. It began in the periumbilical region and was present diffusely across the abdomen. It was associated with bloating and gassy feeling as well as distention. She did have some associated chills, but is unsure if she had any fever. She did have nausea and vomiting on Sunday and presented to the ED Sunday evening. There was no chest pain, shortness of breath, or symptoms. Her urine had remained normal in color. She has not had any prior similar symptoms. She is unsure about any family history of gallbladder disease. The patient is presently pain-free. She denies nausea, but also does not have much appetite at present. 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 PAST SURGICAL HISTORY: Include x3, all via low midline incision; left total hip arthroplasty; left shoulder surgery. No reported surgical or anesthesia problems. CURRENT MEDICATIONS: 1. Atenolol 25 mg once daily. 2. Benazepril 20 mg a once daily. 3. Atorvastatin 20 mg once daily. 4. Spironolactone 25 mg once daily. 5. Colchicine 0.6 mg once daily. 6. Levothyroxine 125 mcg once daily. 7. Vitamin D 1000 International Units 2 tablets once daily. 8. Tramadol 50 mg t.i.d. p.r.n. (she generally uses b.i.d.) 9. She is also currently receiving Zosyn and Dilaudid p.r.n. 10. Albuterol MDI p.r.n. 11. She takes following supplements: Coconut oil and turmeric. ALLERGIES: None known. FAMILY HISTORY: No known problems with anesthesia. No history of bleeding or clotting disorders. SOCIAL HISTORY: The patient lives alone. Her son and walbgszi-ey-gee live nearby. 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 She is a nonsmoker and denies recent use of alcohol or any other recreational drugs. REVIEW OF SYSTEMS: General: No recent constitutional symptoms or acute illnesses other than described in the HPI. Cardiovascular: No recent chest pain or shortness of breath. She is limited in terms of activity secondary to her weight. She did undergo a stress test in [place] few years ago because of shortness of breath that was a normal study by history. Respiratory: No recent shortness of breath. She does have an albuterol inhaler, but has not needed it lately. Cardiovascular: No history of DE or angina. GI: As above per HPI. No lower GI symptoms. Colonoscopy done within the last 3 to 5 years reportedly with diverticulosis. No history of diverticulitis. : No problems reported. COTTON FARMWORKER: Breasts exam and mammogram done within the past year reportedly normal. The patient does not recall her last pelvic exam, though it has been at least a couple of years. No interval problems or symptoms noted. Endocrine: No diabetes. She is treated for hypothyroidism. PHYSICAL EXAM: Height 4 feet 8 inches, weight 232 pounds, BMI 52. T-max 99.1, currently 98.4; blood pressure 159/81; pulse 71; respirations 24; room air saturation 95%. General: Well-nourished, morbidly obese female, in no acute distress. She appears comfortable, lying in her bed. Skin: Warm and dry. No suspicious rashes or lesions. HEENT: Pupils equal, round, and reactive. EOMs are intact. No conjunctival pallor or scleral icterus. Oropharynx: Teeth are in fair- to-good repair. No intraoral lesions noted. Mucous membranes moist. Neck: No lymphadenopathy, thyromegaly, or masses. Heart: Regular rate and rhythm. No murmur appreciated. Lungs: Clear to auscultation. No rales or wheezes. Breasts: Not examined. Abdomen: Well-healed lower midline incision. Bowel sounds are present. Abdomen is obese and exam is thus limited. Abdomen is soft. She has moderately severe tenderness in the right upper quadrant with positive Granado's sign. The remainder of the abdomen is soft and nontender and without palpable masses or organomegaly. Genitalia and Rectal: Not done. Back: No spinous process or CVA tenderness. Extremities: No edema. Neurological: Grossly intact. DIAGNOSTIC STUDIES/LAB DATA: Of note, white blood cell count on admission 13.3 , down to 11.7 this morning; hemoglobin 11.5; hematocrit 35; there is a left shift in the differential. Her initial chemistries were normal with the exception of mildly elevated creatinine at 1.22, glucose mildly elevated at 136. Her LFTs, lipase, and lactic acid were all normal. She did have a mildly elevated troponin at 0.09, which michel to 0.13 and repeat was 0.12. CT scan of the abdomen and pelvis without oral contrast showed hepatomegaly with fatty liver changes. Gallstone was noted with mild gallbladder wall thickening. Also noted were bilateral ovarian cysts, the largest being 6.7 cm. Ultrasound confirmed these findings with gallstone measuring 2.6 cm, gallbladder wall thickening measured at 4 mm, trace amount of pericholecystic fluid and a normal common bile duct at 5 mm. IMPRESSION: Symptomatic cholelithiasis with cholecystitis. RECOMMENDATION: For cholecystectomy pending Cardiology clearance based on nuclear stress test scheduled for tomorrow morning. In the meantime, the patient may be allowed clear liquids and we would agree with current IV Zosyn. Case was discussed both with Dr. Stroud and Dr. Denson, who will likely be doing laparoscopic cholecystectomy tomorrow afternoon pending Cardiology clearance. We will also put in a request for COTTON FARMWORKER consult based on the somewhat large bilateral ovarian cysts and the fact that she will likely be taken to the operating room tomorrow for laparoscopy. BEATRIZ BUSTAMANTE [id number]/[facility] #: [id number] [facility] MEDICAL CENTERMandie
--- NOTE | 2017-02-06 22:05 | CONS ---
CONSULTATION REPORT: DATE OF CONSULTATION: 02/06/17 She was admitted on 02/06/17. HISTORY OF PRESENT ILLNESS: Ms. Dalal is a 67-year-old menopausal lady, 3, para 3-0-0-3, who is admitted to the hospitalist service with new onset of abdominal pain, which started on 02/04/17, and based on her clinical signs and symptoms along with radiological and laboratory studies, she has a possible diagnosis of cholecystitis for which the general surgeons were consulted as well. I was consulted by general surgery group due to incidental findings of bilateral adnexal masses on CT scan, which on ultrasound of the pelvis were confirmed to be bilateral ovarian cystic masses. PAST MEDICAL HISTORY: Hypertension, chronic kidney disease, hypothyroidism, obesity. PAST SURGICAL HISTORY: section x3, tubal ligation, KENNY, and left shoulder surgery. OBSTETRICAL HISTORY: Three full term sections. No history of abortions. No history of miscarriages and no history of infertility drugs for infertility. GYNECOLOGICAL HISTORY: Denied sexually transmitted diseases. There is no history of polycystic ovarian syndrome and no history of abnormal uterine bleeding. SOCIAL HISTORY: The patient denies cigarette or drug use. 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 FAMILY HISTORY: Negative for breast, ovarian or colon cancer. Father was a smoker, he at the age of 70 apparently due to melanoma. Per patient and family, he also had lung cancer. Mother had rheumatoid arthritis and passed at the age of 40 secondary to pneumonia. ALLERGIES: She has no known drug allergies. MEDICATIONS: For medications, please refer to the patient's hospital record for the list of current medications and medications that were taken at home. REVIEW OF SYSTEMS: The patient denies chest pain, shortness of breath, palpitations. She denies abdominal bloating, chronic nausea, vomiting, or diarrhea. Denies constipation. No urinary signs or symptoms. Denies postmenopausal bleeding. PHYSICAL EXAMINATION: The patient is alert, awake, oriented x3. She is in bed. She is comfortable, in no apparent distress, chatting with her family. Her vital signs are stable. She is afebrile. She is morbidly obese with a weight of 104.78 kilograms. Pelvic exam and abdominal exam deferred. PERTINENT RADIOLOGICAL FINDINGS: Pelvic ultrasound revealed a normal uterus, a major stripe of 6 mm with no postmenopausal bleeding. Bilateral adnexal masses with right ovary measuring 8.8 x 6 x 7.2 cm, mostly cystic with a more complex 4.6 x 7.7 x 5.3 mass. Left ovary measures 6.8 x 5.5 x 5.6 which what appears to be a simple cystic mass. She had a CA-125, which was within normal limits at 1.6. IMPRESSION: This is a 67-year-old menopausal lady with no postmenopausal bleeding, incidental finding of bilateral adnexal cystic masses with a normal CA -125 with complaints of nausea and vomiting most likely due to cholecystitis. RECOMMENDATIONS: If there are no acute problems with her ovaries requiring immediate surgical intervention she can be followed as an outpatient with a possible referral to [facility]NER oncologist for evaluation and treatment. [id number]/[facility] #: [id number] MTDMandie
[2017-02-07] MEDS: Omeprazole CAP* 20 MG PO SCH (05:27)
[2017-02-07] MEDS: Levothyroxine TAB* 125 MCG TAB PO SCH (05:27)
[2017-02-07] MEDS: oxyCODONE TAB* 5 MG TAB PO PRN (05:30)
[2017-02-07 05:56] LABS: Hematocrit 30 % (35-47); Hemoglobin 10.3 g/dl (12.0-16.0); Mean Corpuscular HGB Conc 34 g/dl (31-36); Mean Corpuscular Hemoglobin 30 pg (27-31); Mean Corpuscular Volume 89 fL (80-97); Mean Platelet Volume 8 um3 (7.4-10.4); Red Blood Count 3.38 10^6/ul (4.0-5.4); Red Cell Distribution Width 14 % (10.5-15); White Blood Count 9.7 10^3/ul (3.5-10.8)
[2017-02-07 06:05] LABS: BUN/Creatinine Ratio 11.7 (8-20); Calcium 8.8 mg/dL (8.6-10.3); EGFR African American 63.4 (>60); EGFR Non-African American 49.3 (>60); Potassium 3.9 mmol/L (3.5-5.0)
[2017-02-07] MEDS ORDERED: Regadenoson* 0.4 MG/5 ML SYRINGE ONE (09:01)
[2017-02-07] MEDS ORDERED: Aminophylline IV* 25 MG/ML 10 ML VIAL ONE (09:09)
--- NOTE | 2017-02-07 10:33 | RAD ---
HISTORY: Elevated troponin hypertension, hyperlipidemia COMPARISONS: None TECHNIQUE: A 1 day stress/rest myocardial perfusion study was performed, with pharmacologic stress. The stress portion was monitored by Dr. Green. Nongated SPECT imaging was performed, with CT-based attenuation correction DOSE: Stress: Technetium 99m tetrofosmin, 26.04 millicuries, injected at 9:17 AM on February 07, 2017 Rest: Technetium 99m tetrofosmin, 10.67 millicuries, injected at 6:35 AM on February 07, 2017 Pharmacologic agent: Lexiscan FINDINGS: CARDIAC MONITORING: No ST changes with stress EF: Not calculated secondary to nongated study secondary to baseline arrhythmia TID: 0.96 MOTION: Normal motion, with normal wall thickening. PERFUSION: There are no fixed or reversible perfusion defects. OTHER: None IMPRESSION: NO FIXED OR REVERSIBLE PERFUSION DEFECTS ASSESSMENT: LOW RISK. Based on imaging criteria from ACC/AHA 2002. Guideline Update for the Management of Patient's with Chronic Stable Angina, table 23. Noninvasive Risk Stratification.
--- NOTE | 2017-02-07 11:18 | PN ---
Subjective Date of Service: 02/07/17 - CC: RUQ pain, nausea Interval History: The patient feels better than on admission. No chest pain or trouble breathing. Medications Active Medications: Acetaminophen (Tylenol Tab*) 650 mg PO Q6H PRN PRN Reason: FEVER/PAIN Atenolol (Tenormin Tab*) 25 mg PO DAILY [facility] Atorvastatin Calcium (Lipitor*) 20 mg PO DAILY [facility] Last Admin: 02/06/17 08:40 Dose: 20 mg Docusate Sodium (Colace Cap*) 200 mg PO BID [facility] Last Admin: 02/06/17 22:00 Dose: Not Given Hydromorphone HCl (Dilaudid Iv*) 0.5 mg IV Q2H PRN PRN Reason: PAIN Last Admin: 02/06/17 05:07 Dose: 0.5 mg Sodium Chloride (Ns 0.9% 1000 Ml*) 1,000 mls @ 125 mls/hr IV PER RATE [facility] Last Admin: 02/06/17 22:43 Dose: 125 mls/hr Piperacillin Sod/Tazobactam (Sod 3.375 gm/ Sodium Chloride) 100 mls @ 25 mls/ hr IVPB Q8H [facility] Last Admin: 02/07/17 08:41 Dose: 25 mls/hr Levothyroxine Sodium (Synthroid Tab*) 125 mcg PO DAILY@0600 [facility] Last Admin: 02/07/17 05:27 Dose: Not Given Lisinopril (Prinivil Tab*) 20 mg PO DAILY [facility] Last Admin: 02/06/17 08:40 Dose: 20 mg Melatonin (Melatonin (Nf)) 3 mg PO BEDTIME PRN; Protocol PRN Reason: Sleep Omeprazole (Prilosec Cap*) 20 mg PO DAILY@0600 [facility] Last Admin: 02/07/17 05:27 Dose: Not Given Ondansetron HCl (Zofran Inj*) 4 mg IV Q6H PRN PRN Reason: NAUSEA Oxycodone HCl (Roxycodone Tab*) 10 mg PO Q4H PRN PRN Reason: PAIN Last Admin: 02/07/17 05:30 Dose: 10 mg Spironolactone (Aldactone Tab*) 25 mg PO DAILY [facility] Last Admin: 02/06/17 08:41 Dose: 25 mg Tramadol HCl (Ultram*) 50 mg PO TID PRN PRN Reason: PAIN Last Admin: 02/06/17 19:13 Dose: 50 mg Objective Vital Signs: Temp Pulse Resp BP Pulse Ox 98.0 F 107 12 127/64 97 02/07/17 07:59 02/07/17 07:59 02/07/17 08:00 02/07/17 07:59 02/07/17 07:59 Oxygen Devices in Use Now: Nasal Cannula Appearance: Obese older woman, lying at 20 degrees, no acute distress. Eyes: No Scleral Icterus, PERRLA Ears/Nose/Mouth/Throat: Mucous Membranes Moist Neck: NL Appearance and Movements; NL JVP, Trachea Midline Respiratory: Clear to Auscultation Cardiovascular: RRR - 2-3/6 systolic murmer heard LLSB radiating to apex Abdominal: No Hepatosplenomegaly - obese, no epigastric discomfort, +bowel sounds. Extremities: No Edema - very thick. Skin: No Rash or Ulcers Neurological: Alert and Oriented x 3, NL Muscle Strength and Tone - on gross exam. Lines/Tubes/Other Access: Clean, Dry and Intact Peripheral IV Laboratory Results: 02/07/17 05:25 02/07/17 05:25 INR (Anticoag Therapy) 0.90 (0.89-1.11) 02/05/17 23:03 APTT 28.4 seconds (26.0-36.3) 02/05/17 23:03 Total Bilirubin 0.70 mg/dL (0.2-1.0) 02/05/17 23:03 AST 19 U/L (13-39) 02/05/17 23:03 ALT 37 U/L (7-52) 02/05/17 23:03 Alkaline Phosphatase 94 U/L (34-104) 02/05/17 23:03 Total Protein 7.1 g/dL (6.4-8.9) 02/05/17 23:03 Albumin 4.2 g/dL (3.2-5.2) 02/05/17 23:03 Globulin 2.9 g/dL (2-4) 02/05/17 23:03 Albumin/Globulin Ratio 1.4 (1-3) 02/05/17 23:03 02/06/17 02/06/17 03:55 04:55 Troponin I 0.13 H* 0.12 H* Diagnostic Imaging: Nuclear chemical stress today: not able to be gated. No ischemica, no infarction. ECHO 02/06/17: EF 65%, mild to moderate MR, mild TR, PApr 37 mmHg, abnormal diastolic function. EKG Data: Monitor: Normal sinus rhythm. ECG on stress test normal and unchanged from ECG's 02/05/17 and 02/06/17. Assessment/Plan 67 yo female admitted with cholecystitis in need of chylecystectomy. Mild elevation of troponins, no history of angina, unremarkable ECG and nuclear stress test today reassuring. Points of Discussion: Cardiac issues and surgery: The patient may proceed to surgery without additional cardiac testing. The patient is at risk for CHF, left and right from diastolic dysfunction and valvular insufficiency, she may need prn extra diuretics. Some risk of small vessel disease that would not show on stress test, therefore I recommend resuming beta jessica post operatively.
[2017-02-07] MEDS: Atenolol TAB* 25 MG PO SCH (13:56)
[2017-02-07] MEDS ORDERED: Bupivacaine 0.25% SDV* 30 ML ONE (14:50)
--- NOTE | 2017-02-07 14:58 | PN ---
Progress Note - Progress Note Date of Service: 02/07/17 SOAP: Subjective: Pt seen and examined. Chart reviewed and patient interviewed. Pain improved. RUQ. No vomiting recently. Pt underwent Nuclear stress test and cardiology note reviewed. 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 tender at RUQ Labs and imaging reviewed Assessment: Acute cholecysttitis Plan: Laparoscopic cholcystectomy. R/B/A discussed and pt agrees to proceed. We spoke of the possible complications which include but are not limited to bleeding, infection, bile leak, retained CBD stones, bowel injury or CBD injury , need for open procedure, need for additional procedures. We will proceed. Ovarian cysts to be possibly evaluated intraoperatively by Piercing Specialist.
[2017-02-07] MEDS ORDERED: Dexamethasone IV* 4 MG/ML 1 ML (4 MG) ONE (15:04)
[2017-02-07] MEDS ORDERED: Famotidine IV* 10 MG/ML 2 ML (20 mg) ONE (15:04)
[2017-02-07] MEDS ORDERED: Dexamethasone IV* 8 MG in NS 0.9% 50 ML* 50 ML IVPB ONE (15:04)
[2017-02-07] MEDS ORDERED: Famotidine IV* 10 MG/ML 2 ML (20 mg) IV SLOW PU ONE (15:04)
[2017-02-07] MEDS: Docusate CAP* 100 MG PO SCH ×2 (15:12→21:37)
[2017-02-07] MEDS ORDERED: fentaNYL* 50 MCG/ML 5 ML VIAL (250 MCG VIAL) ONE (15:18)
[2017-02-07] MEDS ORDERED: Lidocaine 2% PF * 5 ML VIAL ONE (15:18)
[2017-02-07] MEDS ORDERED: Succinylcholine* 20 MG/ML 10 ML VIAL ONE (15:18)
[2017-02-07] MEDS ORDERED: Propofol* 10 MG/ML 20 ML BTL IV PUSH ONE (15:18)
[2017-02-07] MEDS ORDERED: Cisatracurium* 2 MG/ML MDV 5 ML ONE (15:40)
[2017-02-07] MEDS ORDERED: EPHEDrine (Pressors)* 50 MG/ML VIAL ONE (15:41)
[2017-02-07] MEDS ORDERED: HYDROcodone/ACETAMIN 5-325 MG* 1 TAB PO PRN ×2 (16:00→18:18)
[2017-02-07] MEDS ORDERED: oxyCODONE/Acetamin 5/325 MG* TAB PO PRN (16:00)
[2017-02-07] MEDS ORDERED: PROCHLORPERAZINE INJ 5 MG/ML 2 ML VIAL IV PRN (16:00)
[2017-02-07] MEDS ORDERED: Ondansetron INJ* 2 MG/ML VIAL ONE (16:21)
[2017-02-07] MEDS ORDERED: fentaNYL* 50 MCG/ML 2 ML VIAL (100 MCG VIAL) ONE ×2 (17:01→18:32)
--- NOTE | 2017-02-07 17:20 | PN ---
Subjective Date of Service: 02/07/17 Interval History: Seen with daughter and daughter in law at bedside Abdominal pain present but improved some +OSPINA on right, throbbing, agrees to try small dose of morphine Objective Active Medications: Acetaminophen (Tylenol Tab*) 650 mg PO Q6H PRN PRN Reason: FEVER/PAIN Hydrocodone Bitart/Acetaminophen ([place] 5-325 Tab*) 1 tab PO ONCE PRN PRN Reason: PAIN - MODERATE Stop: 02/07/17 20:00 Atenolol (Tenormin Tab*) 25 mg PO DAILY [facility] Last Admin: 02/07/17 13:56 Dose: 25 mg Atorvastatin Calcium (Lipitor*) 20 mg PO DAILY [facility] Last Admin: 02/06/17 08:40 Dose: 20 mg Docusate Sodium (Colace Cap*) 200 mg PO BID [facility] Last Admin: 02/07/17 15:12 Dose: Not Given Fentanyl Citrate (Fentanyl*) 50 mcg IV Q5M PRN PRN Reason: PAIN - MODERATE Stop: 02/07/17 20:00 Hydromorphone HCl (Dilaudid Iv*) 0.5 mg IV Q2H PRN PRN Reason: PAIN Last Admin: 02/06/17 05:07 Dose: 0.5 mg Sodium Chloride (Ns 0.9% 1000 Ml*) 1,000 mls @ 125 mls/hr IV PER RATE [facility] Last Admin: 02/06/17 22:43 Dose: 125 mls/hr Piperacillin Sod/Tazobactam (Sod 3.375 gm/ Sodium Chloride) 100 mls @ 25 mls/ hr IVPB Q8H [facility] Last Admin: 02/07/17 08:41 Dose: 25 mls/hr Levothyroxine Sodium (Synthroid Tab*) 125 mcg PO DAILY@0600 [facility] Last Admin: 02/07/17 05:27 Dose: Not Given Lisinopril (Prinivil Tab*) 20 mg PO DAILY [facility] Last Admin: 02/06/17 08:40 Dose: 20 mg Melatonin (Melatonin (Nf)) 3 mg PO BEDTIME PRN; Protocol PRN Reason: Sleep Omeprazole (Prilosec Cap*) 20 mg PO DAILY@0600 [facility] Last Admin: 02/07/17 05:27 Dose: Not Given Ondansetron HCl (Zofran Inj*) 4 mg IV Q6H PRN PRN Reason: NAUSEA Oxycodone HCl (Roxycodone Tab*) 10 mg PO Q4H PRN PRN Reason: PAIN Last Admin: 02/07/17 05:30 Dose: 10 mg Oxycodone/Acetaminophen (Percocet 5/325 Tab*) 1 tab PO ONCE PRN PRN Reason: PAIN - MODERATE Stop: 02/07/17 20:00 Prochlorperazine Edisylate (Compazine Inj*) 5 mg IV ONCE PRN PRN Reason: NAUSEA/VOMITING Stop: 02/07/17 20:00 Spironolactone (Aldactone Tab*) 25 mg PO DAILY [facility] Last Admin: 02/06/17 08:41 Dose: 25 mg Tramadol HCl (Ultram*) 50 mg PO TID PRN PRN Reason: PAIN Last Admin: 02/06/17 19:13 Dose: 50 mg Vital Signs 02/06/17 02/06/17 02/06/17 17:54 19:13 19:45 Temperature 98.2 F Pulse Rate 75 Respiratory 16 16 16 Rate Blood Pressure 157/81 (mmHg) O2 Sat by Pulse 95 Oximetry 02/06/17 02/06/17 02/06/17 20:00 21:13 22:43 Temperature Pulse Rate Respiratory 16 16 18 Rate Blood Pressure (mmHg) O2 Sat by Pulse Oximetry 02/06/17 02/07/17 02/07/17 23:20 00:43 03:15 Temperature 98.3 F 99.2 F Pulse Rate 81 74 Respiratory 16 16 16 Rate Blood Pressure 131/70 131/64 (mmHg) O2 Sat by Pulse 95 94 Oximetry 02/07/17 02/07/17 02/07/17 04:18 05:30 07:30 Temperature Pulse Rate Respiratory 16 16 Rate Blood Pressure (mmHg) O2 Sat by Pulse 95 Oximetry 02/07/17 02/07/17 02/07/17 07:59 08:00 11:23 Temperature 98.0 F 98.3 F Pulse Rate 107 84 Respiratory 20 12 24 Rate Blood Pressure 127/64 137/66 (mmHg) O2 Sat by Pulse 97 97 Oximetry Oxygen Devices in Use Now: Nasal Cannula Appearance: sitting in chair, NAD Eyes: No Scleral Icterus, PERRLA Ears/Nose/Mouth/Throat: Mucous Membranes Moist Neck: NL Appearance and Movements; NL JVP, Trachea Midline Respiratory: Symmetrical Chest Expansion and Respiratory Effort, Clear to Auscultation Cardiovascular: RRR Abdominal: - - soft, TTP RUQ, ND, +bs Extremities: - - trace le edema Skin: No Rash or Ulcers Neurological: Alert and Oriented x 3 Result Diagrams: 02/07/17 05:25 02/07/17 05:25 Additional Lab and Data: Lab Results 02/05/17 02/05/17 02/05/17 Range/Units 22:50 23:03 23:03 WBC 13.3 H (3.5-10.8) 10^3/ul RBC 4.13 (4.0-5.4) 10^6/ul Hgb 12.3 (12.0-16.0) g/dl Hct 37 (35-47) % MCV 88 (80-97) fL MCH 30 (27-31) pg MCHC 34 (31-36) g/dl RDW 14 (10.5-15) % Plt Count 294 (150-450) 10^3/ul MPV 8 (7.4-10.4) um3 Neut % (Auto) 87.1 H (38-83) % Lymph % (Auto) 7.3 L (25-47) % [place] % (Auto) 5.2 (1-9) % Eos % (Auto) 0.1 (0-6) % Baso % (Auto) 0.3 (0-2) % Absolute Neuts (auto) 11.6 H (1.5-7.7) 10^3/ul Absolute Lymphs (auto) 1.0 (1.0-4.8) 10^3/ul Absolute Monos (auto) 0.7 (0-0.8) 10^3/ul Absolute Eos (auto) 0 (0-0.6) 10^3/ul Absolute Basos (auto) 0 (0-0.2) 10^3/ul Absolute Nucleated RBC 0 10^3/ul Nucleated RBC % 0 INR (Anticoag Therapy) 0.90 (0.89-1.11) APTT 28.4 (26.0-36.3) seconds Sodium (133-145) mmol/L Potassium (3.5-5.0) mmol/L Chloride (101-111) mmol/L Carbon Dioxide (22-32) mmol/L Anion Gap (2-11) mmol/L BUN (6-24) mg/dL Creatinine (0.51-0.95) mg/dL Est GFR ( Amer) (>60) Est GFR (Non-Af Amer) (>60) BUN/Creatinine Ratio (8-20) Glucose (70-100) mg/dL Lactic Acid (0.5-2.0) mmol/L Calcium (8.6-10.3) mg/dL Total Bilirubin (0.2-1.0) mg/dL AST (13-39) U/L ALT (7-52) U/L Alkaline Phosphatase (34-104) U/L Troponin I (<0.04) ng/mL Total Protein (6.4-8.9) g/dL Albumin (3.2-5.2) g/dL Globulin (2-4) g/dL Albumin/Globulin Ratio (1-3) Lipase (11.0-82.0) U/L Urine Color Yellow Urine Appearance Cloudy Urine pH 5.0 (5-9) Ur Specific [place] 1.016 (1.010-1.030) Urine Protein 1+(30 mg/dl) H (Negative) Urine Ketones Negative (Negative) Urine Blood Negative (Negative) Urine Nitrate Negative (Negative) Urine Bilirubin Negative (Negative) Urine Urobilinogen Negative (Negative) Ur Leukocyte Esterase 3+ H (Negative) Urine WBC (Auto) 3+(>20/hpf) H (Absent) Urine RBC (Auto) 2+(6-10/hpf) H (Absent) Ur Squamous Epith Cells Present H (Absent) Urine Bacteria Absent (Absent) Urine Glucose Negative (Negative) 02/05/17 02/05/17 Range/Units 23:03 23:03 WBC (3.5-10.8) 10^3/ul RBC (4.0-5.4) 10^6/ul Hgb (12.0-16.0) g/dl Hct (35-47) % MCV (80-97) fL MCH (27-31) pg MCHC (31-36) g/dl RDW (10.5-15) % Plt Count (150-450) 10^3/ul MPV (7.4-10.4) um3 Neut % (Auto) (38-83) % Lymph % (Auto) (25-47) % [place] % (Auto) (1-9) % Eos % (Auto) (0-6) % Baso % (Auto) (0-2) % Absolute Neuts (auto) (1.5-7.7) 10^3/ul Absolute Lymphs (auto) (1.0-4.8) 10^3/ul Absolute Monos (auto) (0-0.8) 10^3/ul Absolute Eos (auto) (0-0.6) 10^3/ul Absolute Basos (auto) (0-0.2) 10^3/ul Absolute Nucleated RBC 10^3/ul Nucleated RBC % INR (Anticoag Therapy) (0.89-1.11) APTT (26.0-36.3) seconds Sodium 137 (133-145) mmol/L Potassium 3.9 (3.5-5.0) mmol/L Chloride 108 (101-111) mmol/L Carbon Dioxide 22 (22-32) mmol/L Anion Gap 7 (2-11) mmol/L BUN 23 (6-24) mg/dL Creatinine 1.22 H (0.51-0.95) mg/dL Est GFR ( Amer) 56.9 (>60) Est GFR (Non-Af Amer) 44.2 (>60) BUN/Creatinine Ratio 18.9 (8-20) Glucose 136 H (70-100) mg/dL Lactic Acid 1.7 (0.5-2.0) mmol/L Calcium 10.0 (8.6-10.3) mg/dL Total Bilirubin 0.70 (0.2-1.0) mg/dL AST 19 (13-39) U/L ALT 37 (7-52) U/L Alkaline Phosphatase 94 (34-104) U/L Troponin I 0.09 H* (<0.04) ng/mL Total Protein 7.1 (6.4-8.9) g/dL Albumin 4.2 (3.2-5.2) g/dL Globulin 2.9 (2-4) g/dL Albumin/Globulin Ratio 1.4 (1-3) Lipase 17 (11.0-82.0) U/L Urine Color Urine Appearance Urine pH (5-9) Ur Specific [place] (1.010-1.030) Urine Protein (Negative) Urine Ketones (Negative) Urine Blood (Negative) Urine Nitrate (Negative) Urine Bilirubin (Negative) Urine Urobilinogen (Negative) Ur Leukocyte Esterase (Negative) Urine WBC (Auto) (Absent) Urine RBC (Auto) (Absent) Ur Squamous Epith Cells (Absent) Urine Bacteria (Absent) Urine Glucose (Negative) Assess/Plan/Problems-Billing Assessment: 67 yo F h/o CKD, HTN p/w abdominal pain found with acute cholecystitis, elevated troponin, and incidentally noted ovarian masses - Patient Problems (1) Acute cholecystitis Comment: c/w zosyn lap eulalia today (2) Ovarian tumor Comment: differential includes malignant and non malignant tumors (ie cysts) OPHTHALMIC SURGICAL ASSISTANT consulted may possibly view during lap eulalia today Otherwise, additional imaging to follow ie MRI or short interval TVUS (3) Hypertension Comment: Aldactone, lisinopril, atenolol (4) Elevated troponin Comment: stress test low risk (5) CKD (chronic kidney disease) stage 3, GFR 30-59 ml/min Comment: stable (6) DVT prophylaxis Comment: SCDs
--- NOTE | 2017-02-07 18:21 | PN ---
Progress Note - Progress Note Date of Service: 02/07/17 Note: Brief Operative note: Preop Dx: acute cholecystitis Postop Dx: acute on chronic cholecystitis Procedure: laparoscopic cholecystectomy Anesthesia: GET Surgeon: Jarett Asst: BEATRIZ Thurman; NADER Grijalva Fluids: 1700 ml RL EBL: < 50 ml Specimen: gallbladder Drains: one KESHA Findings: dictated
[2017-02-07] MEDS: fentaNYL* 50 MCG/ML 2 ML VIAL (100 MCG VIAL) IV PRN ×2 (18:34→18:49)
[2017-02-07] MEDS: HYDROmorphone* 1 MG/ML 1 ML SYR IV PRN (19:56)
[2017-02-07] MEDS: NS 0.9% 1000 ML* 1,000 ML IV SCH (21:37)
[2017-02-07] MEDS: Heparin VIAL(*) 5000 UNITS/ML VIAL (FIVE THOUSAND) SUBCUT SCH (21:38)
[2017-02-07] MEDS: Atorvastatin* 20 MG TAB PO SCH (22:13)
[2017-02-07] MEDS: Spironolactone TAB* 25 MG PO SCH (22:13)
[2017-02-07] MEDS: Lisinopril TAB* 10 MG PO SCH (22:13)
--- NOTE | 2017-02-08 01:42 | CONS ---
INTRAOPERATIVE CONSULTATION REPORT: DATE OF CONSULTATION: 02/07/17 BRIEF CONSULTATION: This patient is a 67-year-old postmenopausal woman, 3 para, 3 who had been admitted to the hospitalist service with new onset of abdominal pain, which started on 02/04/17. She was found to have likely acute cholecystitis and planned for cholecystectomy today. Incidentally , CT noted bilateral adnexal masses. Please see Dr. Hernandes's previous consult from yesterday. I was consulted to visually inspect the ovaries during today's surgery. After Dr. Denson had placed laparoscopic ports, the patient was placed in the Trendelenburg position and the uterus and then both ovaries were clearly visualized. Both ovaries were significantly enlarged with the right slightly larger than the left. Both ovaries appeared very smooth on the external surface with no nodularity seen. There are also no adhesions to any of the surrounding structures. Both ovaries appear to be freely mobile. The uterus also appeared to be normal and small. IMPRESSION: A 67-year-old woman with an incidental finding of bilateral adnexal masses. CA-125 was performed and returned very low. PLAN: Plan is for the patient to follow up with myself or Dr. Hernandes in the office. We will then discuss the options of surgical removal of the ovaries either locally or perhaps refer to a Bag Machine Helper-Oncologist due to the potential risk for malignancy even though the external appearance does appear benign. These findings were to be relayed to the patient by Dr. Denson postoperatively. Thank you for this consult. [id number]/CPS #: [id number] MTDMandie
[2017-02-08] MEDS: HYDROcodone/ACETAMIN 5-325 MG* 1 TAB PO PRN ×3 (03:24→16:00)
[2017-02-08] MEDS: Levothyroxine TAB* 125 MCG TAB PO SCH (05:27)
[2017-02-08] MEDS: Omeprazole CAP* 20 MG PO SCH (05:27)
[2017-02-08] MEDS: Heparin VIAL(*) 5000 UNITS/ML VIAL (FIVE THOUSAND) SUBCUT SCH ×2 (05:27→14:41)
[2017-02-08] MEDS: Docusate CAP* 100 MG PO SCH (09:00)
[2017-02-08] MEDS: Atorvastatin* 20 MG TAB PO SCH (09:00)
[2017-02-08] MEDS: Atenolol TAB* 25 MG PO SCH (09:00)
[2017-02-08] MEDS: Spironolactone TAB* 25 MG PO SCH (09:00)
[2017-02-08] MEDS: Lisinopril TAB* 10 MG PO SCH (09:00)
--- NOTE | 2017-02-08 09:17 | PN ---
Progress Note - Progress Note Date of Service: 02/08/17 SOAP: Subjective: [Pt seen and examined. Feeling better today. Pain is "different" positive appetite. Ambulating Objective: af vss lungs clear abdo: soft/ obese/ mild incisional tenderness dressing intact KESHA serosang no calf tenderness Assessment: POD 1 lap eulalia Plan: complete abx this am d/c home after lunch with KESHA drain f/u next week
[2017-02-08 15:59] VITALS: BP 112/62
--- NOTE | 2017-02-08 16:00 | OP ---
CC: Dr. Viktor Donald; Dr. Abhishek Gonzalez * DATE OF OPERATION: 02/07/17 - ROOM #334 DATE OF : 54 SURGEON: Regan Denson MD. SAND MIXER: BEATRIZ Barajas. ANESTHESIOLOGIST: Dr. Rosaline Deshpande. ANESTHESIA: General anesthesia. PRE-OP DIAGNOSIS: Acute cholecystitis. POST-OP DIAGNOSIS: Acute on chronic cholecystitis. OPERATIVE PROCEDURE: Laparoscopic cholecystectomy. ESTIMATED BLOOD LOSS: 50 cc. FLUIDS: 1700 cc of lactated Ringer's given. SPECIMEN: Gallbladder. DRAINS: A #7 KESHA drain. DESCRIPTION OF PROCEDURE: The patient was identified in the preoperative area. I discussed the case with her and her family and went over the risks, benefits , and alternatives as well as possible complications in the routine fashion. The patient agreed and signed consent. Her abdomen was marked and she was taken to the operating room and placed on the operating table in supine position. Preoperative antibiotics were given. Sequential compression device was placed on bilateral lower extremities. General anesthesia was induced. The patient's abdomen was prepped and draped in standard surgical fashion and a time-out was performed. A periumbilical incision was made just above and to the right of the umbilicus. This was deepened down to the anterior fascia, which was elevated and the Veress needle was inserted into the abdominal cavity, which was then allowed to insufflate to a pressure of 15 mmHg. The patient tolerated the insufflation well. Veress needle was then removed and a 12-mm trocar inserted at this site. Laparoscope was inserted through this. There was no evidence of injury from the trocar insertion or from the Veress needle. Additional trocars were placed in the following position, a 12 mm in the subxiphoid area and a 5 mm in the right lateral side. Gallbladder was not identifiable and significant amount of omental attachments were noted along the liver edge. 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 The patient was placed in a Trendelenburg fashion and review of the pelvis showed no free fluid. Both left and right ovarian lesions were identified and appreciated by Dr. Gonzalez. Pictures were taken and attention was then returned back to the gallbladder. An additional 5 mm trocar was then inserted along the right costal margin. With the patient placed in a reverse Trendelenburg and right side up position, we started by taking omentum that was attached to the inferior liver edge. We did this until we could identify gallbladder and both blunt and sharp dissection was utilized to sweep this omentum off of the gallbladder. The gallbladder was grasped and retracted anteriorly. The liver was somewhat enlarged and did make it difficult to shift the gallbladder around. We continued with these dissections to better appreciate the body of the gall- bladder. We saw where it started to taper down towards what looked to be a cystic duct. We could not identify common bile duct and no critical view could be obtained at this time. Even with the omentum down and the duodenum lysed from the portion of the gallbladder, we still could not fully visualize the proximal portion of the gallbladder. For this reason, a 12 mm trocar was inserted just left of the upper midline, and a 10 mm fan retractor was inserted through this. The fan retractor was utilized to retract the duodenum and distal stomach posteriorly to get better visualization at this site. The infundibular portion of the gallbladder was then retracted laterally. We painstakingly dissected the peritoneum that was thickened and extended this up to the medial aspect of the gall-bladder. The lateral aspect of the gallbladder proved more difficult and we slowly dissected this area with both blunt and sharp dissection. The cystic artery was identified on the medial aspect and this was doubly clipped and ligated and stripped posteriorly to better appreciate what appeared to be the cystic duct. We isolated this ductal system and it appeared robust, but with notable thickening on it. We continued to dissect posterior at this duct and extend this more towards the body and dome of the gallbladder, but could not advance easily because of a structure in the lateral aspect that was of concern. Without being able to obtain this critical view, decision was made to open up the gallbladder and this was done at the anterior aspect and we could then get through to the back wall and see that this was indeed the cystic duct tapering from the inflamed gallbladder. A large gallstone was removed to better visualize this. Ultimately, when there were no other structures other than the cystic duct coming from the gallbladder, it was then doubly clipped and ligated. Gallbladder was removed mostly the anterior portion, the face of the gallbladder was removed and left some of the posterior portion on the liver. Gallbladder was then placed in endoscopic retrieval bag. Previously the gallstone that was removed was also placed in an endoscopic retrieval bag. Gallbladder was removed through the epigastric port site without difficulty and attention was then turned towards the gallbladder fossa. There was additional gallbladder attached to the fossa, but this was minimal and I decided not to remove this, but rather cauterize this. We irrigated approximately 2 L of warm irrigation and this was suctioned out. There was no evidence of bleeding. Cystic duct stumps and cystic artery stump were evaluated and there was no evidence of bile. Indeed, there was no bile seen throughout. When the gall- bladder was opened up, we only saw a small amount of pus and then a large gallstone. Next, the #7 KESHA drain was brought into the subxiphoid port and brought out through the left lateral port site and placed at the appropriate position right at the cystic duct stump and extending it along the liver edge. The patient was placed back into a neutral position. KESHA drain was sutured in place with 3- 0 SurgiPro sutures. Gallstone that had been placed in the endoscopic retrieval bag before was then taken out through the subxiphoid port. The fan retractor was then removed and we reviewed the site, which showed no evidence of damage to the duodenum or stomach. There was no evidence of bleeding. The abdomen was allowed to collapse and trocar was removed under direct vision and all additional skin incisions were reapproximated with skin mehrdad followed by sterile dressing. The patient tolerated the procedure well, was extubated, and transferred back in stable condition. [id number]/CPS #: [id number] BULMARO
--- NOTE | 2017-02-09 04:28 | DS ---
CC: Dr. Friedman at [place], [place] * DISCHARGE SUMMARY: DATE OF ADMISSION: 02/05/17 DATE OF DISCHARGE: 02/08/17 PRIMARY CARE: Dr. Locke. ATTENDING SURGEON: Dr. Regan Denson * (DICTATED BY BEATRIZ BHAT) HOSPITAL COURSE: Please refer to admission history and physical and specifically the surgical consultation from 02/06/17. Briefly, the patient was admitted to [facility] with signs and symptoms consistent with cholecystitis with associated cholelithiasis. She was treated with IV Zosyn. She was seen by Cardiology and underwent a nuclear stress test and was cleared to proceed with surgery. She was taken to the operating room on 02/07/[address] Denson, who performed a laparoscopic cholecystectomy. Surgery was notable for severe acute on chronic cholecystitis (see separate operative report). A Hemal-Zuniga drain was placed at the conclusion of surgery and the patient was kept overnight to complete 24 hours postoperative antibiotics. She was seen in the morning of discharge by Dr. Denson. She was doing well with minimal discomfort other than to palpation. She was tolerating diet well, was afebrile and with stable vital signs. KESHA drainage was serosanguineous. She was given instructions regarding diet, activity, and wound care. She will be seen in our office on 02/13/17 for possible drain removal. A prescription was e-sent to her pharmacy for Percocet. She was also instructed to follow up with Dr. Gonzalez's office regarding her bilateral ovarian cysts. She will resume all of her prehospital medications. BEATRIZ BHAT [id number]/[facility] #: [id number] [facility]
== END 2017-02-08 16:30 | disposition home or self-care (01) | DRG 418 ==
LOC: ED 21:27 → MEDTELE 02-06 03:33 → SSU 02-07 18:11
PROVIDERS: ADMIT Hospitalist; ATTEND Hospitalist
PROC: 4A12XM4 Monitoring of Cardiac Stress, External Approach (ICD-10-PCS; 2017-02-07)
PROC: 0FT44ZZ Resection of Gallbladder, Percutaneous Endoscopic Approach (ICD-10-PCS; principal; 2017-02-07 13:45)
DX: K80.12 Calculus of gallbladder with acute and chronic cholecystitis without obstruction (principal); Z68.43 Body mass index [BMI] 50.0-59.9, adult; K76.0 Fatty (change of) liver, not elsewhere classified; N18.3 Chronic kidney disease, stage 3 (moderate); E66.01 Morbid (severe) obesity due to excess calories; E03.9 Hypothyroidism, unspecified; I12.9 Hypertensive chronic kidney disease with stage 1 through stage 4 chronic kidney disease, or unspecified chronic kidney disease; E78.00 Pure hypercholesterolemia, unspecified; N83.202 Unspecified ovarian cyst, left side; N83.201 Unspecified ovarian cyst, right side; Z96.642 Presence of left artificial hip joint; Z82.61 Family history of arthritis; Z98.51 Tubal ligation status; Z80.8 Family history of malignant neoplasm of other organs or systems; R79.89 Other specified abnormal findings of blood chemistry; R51 Headache; R19.09 Other intra-abdominal and pelvic swelling, mass and lump; G89.29 Other chronic pain; M46.90 Unspecified inflammatory spondylopathy, site unspecified; M10.9 Gout, unspecified
CPT/HCPCS: 36415; 71020; 74177; 76705; 76830; 76856; 78452; 80048; 80053; 81003; 81015; 83605; 83690; 84484; 85025; 85610; 85730; 86304; 87077; 87086; 87186; 88304; 93005; 93017; 93306; 94760; A9270-GY; A9502; J0280; J0330; J1100; J1170; J1644; J2270; J2405; J2543; J2704; J2785; J3010; Q9967

== ENCOUNTER 2017-02-12 10:36 | Emergency (ER) | payer BC, MEDICARE ==
[2017-02-12] MEDS ORDERED: Clindamycin 600 MG IVPREMIX(* 600 MG/50 ML SDV IV ONE (11:42)
[2017-02-12 12:00] LABS: Hematocrit 33 % (35-47); Mean Corpuscular HGB Conc 33 g/dl (31-36); Mean Corpuscular Hemoglobin 30 pg (27-31); Mean Corpuscular Volume 89 fL (80-97); Mean Platelet Volume 7 um3 (7.4-10.4); Red Blood Count 3.71 10^6/ul (4.0-5.4); Red Cell Distribution Width 13 % (10.5-15); White Blood Count 10.4 10^3/ul (3.5-10.8)
--- NOTE | 2017-02-12 12:05 | RAD ---
Indication: LEFT foot pain and swelling. Comparison: January 20, 2012 Technique: AP, lateral, and oblique views LEFT foot. Report: Negative for fracture or dislocation. Advanced osteophytosis, joint space narrowing, subchondral sclerosis at the first metatarsal phalangeal joint. Less marked diffuse osteoarthritis. Small Achilles tendon insertion and moderate plantar fascia origin bone spurs. Nonfocal soft tissue swelling. IMPRESSION: 1. Nonspecific soft tissue swelling. 2. 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
[2017-02-12 12:15] LABS: Albumin 3.4 g/dL (3.2-5.2); BUN/Creatinine Ratio 9.9 (8-20); Calcium 9.2 mg/dL (8.6-10.3); EGFR African American 57.4 (>60); EGFR Non-African American 44.7 (>60); Globulin 3.4 g/dL (2-4); Potassium 3.5 mmol/L (3.5-5.0); Total Bilirubin 0.6 mg/dL (0.2-1.0); Total Protein 6.8 g/dL (6.4-8.9)
--- NOTE | 2017-02-12 15:44 | RAD ---
INDICATION: LEFT lateral ankle redness. COMPARISON: No relevant prior exams available on the [facility] [place] for comparison. TECHNIQUE: Messina scale, color Doppler, and spectral analysis of the deep veins of the LEFT lower extremity. Vessel compression, phasicity, and augmentation assessed. REPORT: The LEFT common femoral, great saphenous, profunda femoral, femoral, popliteal, peroneal, and posterior tibial veins are patent. Subcutaneous edema noted at the lateral LEFT ankle corresponding with the region of redness. No loculated abscess collection evident. Patency of the RIGHT common femoral vein documented. IMPRESSION: No evidence for LEFT lower extremity deep venous thrombosis.
[2017-02-12 15:51] VITALS: BP 135/66
--- NOTE | 2017-02-12 15:54 | ED ---
Lane Alamo Angela, scribed for Valentin Chávez on 02/12/17 at 1144 . Lower Extremity - HPI Summary HPI Summary: This pt is a 67 y/o female presenting to [facility] c/o left foot pain, redness, and swelling x3 days. Pt reports she is 6 days post op cholecystectomy. She denies trauma to her foot, knee pain, fever, chills. Pt has taken Percocet with no relief. She has difficulty ambulating secondary to pain. Pt has a hx of gout in the left toe. - History of Current Complaint Chief Complaint: EDExtremityLower Stated Complaint: LT FOOT PAIN/SWELLING Time Seen by Provider: 02/12/17 11:32 Hx Obtained From: Patient Onset of Pain: Days Onset/Duration: Days Pain Intensity: 10 Pain Scale Used: 0-10 Numeric Timing: Constant Location: Is Discrete @ - left foot Associated Signs And Symptoms: Positive: Swelling, Redness. Negative: Fever, Dizziness, Knee Pain Aggravating Factor(s): Ambulation, Movement Alleviating Factor(s): Nothing - Allergies/Home Medications Allergies/Adverse Reactions: Allergies Allergy/AdvReac Type Severity Reaction Status Date / Time No Known Allergies Allergy Verified 02/05/17 21:33 PMH/Surg Hx/FS Hx/Imm Hx Endocrine/Hematology History: Reports: Hx Thyroid Disease - Hypothyroid Denies: Hx Diabetes Cardiovascular History: Reports: Hx Hypercholesterolemia, Hx Hypertension Denies: Hx Angina, Hx Coronary Artery Disease, Hx Myocardial Infarction, Hx Valvular Heart Disease Respiratory History: Denies: Hx Asthma, Hx Chronic Obstructive Pulmonary Disease (COPD) GI History: Reports: Hx Diverticulosis History: Reports: Hx Renal Disease - DECREASED FUNCTION Denies: Hx Dialysis Musculoskeletal History: Reports: Hx Arthritis, Hx Back Problems, Hx Gout Sensory History: Reports: Hx Contacts or Glasses Denies: Hx Hearing Aid Opthamlomology History: Reports: Hx Contacts or Glasses - Cancer History Hx Chemotherapy: No Hx Radiation Therapy: No Infectious Disease History: No Infectious Disease History: Denies: Traveled Outside the [place] in Last 30 Days - Family History Known Family History: Positive: Hypertension, Other - RA - Social History Alcohol Use: None Substance Use Type: Reports: None Smoking Status (MU): Never Smoked Tobacco Review of Systems Negative: Fever, Chills Eyes: Negative ENT: Negative Negative: Chest Pain Negative: Shortness Of Breath Negative: Abdominal Pain Genitourinary: Negative Positive: Edema - on the left foot, Other - left foot redness and pain Skin: Negative Negative: Headache, Weakness, Paresthesia, Numbness All Other Systems Reviewed And Are Negative: Yes Physical Exam Triage Information Reviewed: Yes Vital Signs On Initial Exam: Initial Vitals Temp Pulse Resp BP Pulse Ox 98.2 F 71 19 108/54 95 02/12/17 10:47 02/12/17 10:47 02/12/17 10:47 02/12/17 10:47 02/12/17 10:47 Vital Signs Reviewed: Yes Appearance: Positive: Well-Appearing, No Pain Distress Skin: Positive: Warm, Skin Color Reflects Adequate Perfusion, Dry Head/Face: Positive: Normal Head/Face Inspection Eyes: Positive: EOMI, BROOKE ENT: Positive: Normal ENT inspection Neck: Positive: Supple, Nontender Respiratory/Lung Sounds: Positive: Clear to Auscultation, Breath Sounds Present Cardiovascular: Positive: RRR, Pulses are Symmetrical in both Upper and Lower Extremities Abdomen Description: Positive: Nontender, Soft Bowel Sounds: Positive: Present Musculoskeletal: Positive: Other - There is tenderness over the dorsum of the left foot, with swelling and redness. Neurological: Positive: Normal, Sensory/Motor Intact, Alert, Oriented to Person Place, Time, Other - No neurologic deficits. - Leo Coma Scale Coma Scale Total: 15 Diagnostics - Vital Signs Vital Signs Temp Pulse Resp BP Pulse Ox 02/12/17 11:24 98.1 F 68 18 133/55 96 02/12/17 10:47 98.2 F 71 19 108/54 95 - Laboratory Result Diagrams: 02/12/17 11:45 02/12/17 11:45 Lab Statement: Any lab studies that have been ordered have been reviewed, and results considered in the medical decision making process. - Radiology Left Foot XR Xray Interpretation: Positive (See Comments) - IMPRESSION: 1. Nonspecific soft tissue swelling. 2. 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 ED physician has reviewed this radiology report and agrees. Radiology Interpretation Completed By: Radiologist - Ultrasound No standard instances Ultrasound Interpretation: No Acute Changes - Left lower extremity US IMPRESSION : No evidence for LEFT lower extremity deep venous thrombosis. ED physician has reviewed this radiology report and agrees. Ultrasound Interpretation Completed By: Radiologist Lower Extremity Course/Dx - Course Assessment/Plan: This pt is a 67 y/o female presenting to [facility] c/o left foot pain, redness, and swelling x3 days. Pt reports she is 6 days post op cholecystectomy. Bloodwork, left foot XR, and US of left foot were obtained. In the ED course, pt was given Clindamycin. The US of the LLE is negative for DVT. Pt will be discharged with dx of cellulitis of left leg, rule out gout. She is advised to follow up with her PCP in 3 days. - Diagnoses Provider Diagnoses: Cellulitis of left leg, rule out gout Discharge - Discharge Plan Condition: Stable Disposition: HOME Patient Education Materials: Cellulitis (ED) Additional Instructions: Please follow up with your primary care provider in 3 days. The documentation as recorded by the Lane coffey Angela accurately reflects the service I personally performed and the decisions made by Kyler monge Emmanuel.
== END 2017-02-12 16:03 | disposition home or self-care (01) ==
LOC: ED 10:36
DX: L03.116 Cellulitis of left lower limb (principal); E03.9 Hypothyroidism, unspecified; I10 Essential (primary) hypertension; E78.00 Pure hypercholesterolemia, unspecified; M19.072 Primary osteoarthritis, left ankle and foot
CPT/HCPCS: 36415; 80053; 85025; 87040; 99283

== ENCOUNTER 2021-02-02 13:18 | Observation (INO) ==
[2021-02-02 15:06] LABS: ABS Basophils 0.1 10^3/ul (0-0.2); ABS Eosinophils 0.2 10^3/ul (0-0.6); ABS Lymphocytes 1.3 10^3/ul (1.0-4.8); ABS Monocytes 0.4 10^3/ul (0-0.8); ABS Neutrophils 10.1 10^3/ul (1.5-7.7); Eosinophil % 1.3 %; Hematocrit 37 % (35-47); Lymphocyte % 10.6 %; Mean Corpuscular HGB Conc 33 g/dL (31-36); Mean Corpuscular Hemoglobin 31 pg (27-31); Mean Corpuscular Volume 94 fL (80-97); Mean Platelet Volume 7.6 fL (7.4-10.4); Platelet Count 370 10^3/uL (150-450); Red Blood Count 3.94 10^6 /uL (3.70-4.87); Red Cell Distribution Width 15 % (10-15); White Blood Count 12.1 10^3/uL (3.5-10.8)
[2021-02-02 15:23] LABS: Albumin 4.6 g/dL (3.2-5.2); Albumin/Globulin Ratio 1.8 (1-3); Calcium 9.7 mg/dL (8.6-10.3); EGFR African American 31.5 (>60); EGFR Non-African American 26.1 (>60); Globulin 2.5 g/dL (2-4); Total Bilirubin 0.5 mg/dL (0.2-1.0); Total Protein 7.1 g/dL (6.4-8.9)
[2021-02-02 15:37] LABS: Potassium 5.7 mmol/L (3.5-5.0)
[2021-02-02] MEDS ORDERED: NS 0.9% 1000 ml BAG 1,000 ML IV ONE (16:10)
[2021-02-02] MEDS ORDERED: Dextrose 50% Syringe 50 ml 25 GM/50 ML SYRINGE IV PUSH ONE ×2 (16:11→17:55)
[2021-02-02] MEDS ORDERED: CALCIUM GLUCONATE 1GM/50ML NS 1 GM/50 ML BAG IV ONE (16:11)
[2021-02-02 16:55] LABS: Venous Bicarbonate HCO3 12.4 mmol/L (24-28)
[2021-02-02 16:58] LABS: Magnesium 1.7 mg/dL (1.9-2.7)
[2021-02-02 21:38] LABS: Calcium 9.5 mg/dL (8.6-10.3); EGFR African American 36.1 (>60); EGFR Non-African American 29.8 (>60)
[2021-02-02 21:39] LABS: Potassium 5.3 mmol/L (3.5-5.0)
[2021-02-02 21:54] LABS: TSH Ultra Thyroid Stim Horm 0.09 mcIU/mL (0.34-5.60)
[2021-02-02] MEDS ORDERED: Patiromer POWDER 8.4 GM PAK PO ONE (22:08)
[2021-02-02] MEDS: Enoxaparin 40 MG/0.4 ML SYR SUBCUT SCH (22:50)
[2021-02-03 04:07] LABS: Magnesium 1.6 mg/dL (1.9-2.7)
[2021-02-03 05:00] LABS: C Reactive Protein 4.58 mg/L (<8.01)
[2021-02-03 05:26] LABS: Free T4 1.33 ng/dL (0.61-1.12)
[2021-02-03] MEDS ORDERED: Sodium Bicarb 650 mg (ANTACID) TAB PO ONE (07:21)
[2021-02-03 07:46] LABS: ABS Eosinophils 0.2 10^3/ul (0-0.6); ABS Lymphocytes 1.1 10^3/ul (1.0-4.8); ABS Monocytes 0.4 10^3/ul (0-0.8); Eosinophil % 2.4 %; Hematocrit 31 % (35-47); Hemoglobin 10.3 g/dL (12.0-16.0); Lymphocyte % 16.5 %; Mean Corpuscular HGB Conc 33 g/dL (31-36); Mean Corpuscular Hemoglobin 31 pg (27-31); Mean Corpuscular Volume 91 fL (80-97); Mean Platelet Volume 7.9 fL (7.4-10.4); Platelet Count 308 10^3/uL (150-450); Red Blood Count 3.39 10^6 /uL (3.70-4.87); Red Cell Distribution Width 14 % (10-15); White Blood Count 6.7 10^3/uL (3.5-10.8)
[2021-02-03 07:57] LABS: EGFR African American 40.1 (>60); EGFR Non-African American 33.2 (>60); Magnesium 1.7 mg/dL (1.9-2.7)
[2021-02-03 08:05] LABS: Potassium 5.4 mmol/L (3.5-5.0)
[2021-02-03] MEDS ORDERED: Magnesium Sulfate 2 gm BAG 2 GM/50 ML BAG IVPB ONE (13:40)
[2021-02-03 14:13] LABS: Blood Urea Nitrogen 53 mg/dL (6-24); Calcium 9.5 mg/dL (8.6-10.3); EGFR African American 45.9 (>60); EGFR Non-African American 37.9 (>60); Glucose 135 mg/dL (70-100); Sodium 136 mmol/L (135-145)
[2021-02-03 14:33] LABS: CO2 Carbon Dioxide 11 mmol/L (22-32)
[2021-02-03 14:34] LABS: Anion Gap 10 mmol/L (2-11); Chloride 115 mmol/L (101-111)
[2021-02-03 16:25] LABS: Potassium Redraw 5.3 mmol/L (3.5-5.0)
[2021-02-03] MEDS ORDERED: Patiromer POWDER 8.4 GM PAK PO ONE (17:00)
[2021-02-03] MEDS: Enoxaparin 40 MG/0.4 ML SYR SUBCUT SCH (20:10)
[2021-02-03] MEDS: Sodium Bicarb 650 mg (ANTACID) TAB PO SCH (20:10)
[2021-02-04 01:39] LABS: Magnesium 2.2 mg/dL (1.9-2.7)
[2021-02-04] MEDS: Sodium Bicarb 650 mg (ANTACID) TAB PO SCH ×2 (06:36→15:44)
[2021-02-04 06:53] LABS: Venous Bicarbonate HCO3 15.9 mmol/L (24-28)
[2021-02-04 07:15] LABS: Calcium 9.7 mg/dL (8.6-10.3); EGFR African American 48.3 (>60); EGFR Non-African American 39.9 (>60); Potassium 4.8 mmol/L (3.5-5.0)
[2021-02-04] MEDS ORDERED: Aminophylline 25 MG/ML VIAL ONE (10:41)
[2021-02-04] MEDS ORDERED: Regadenoson 0.4 MG/5 ML SYRINGE ONE (10:41)
[2021-02-04 17:29] VITALS: BP 102/60
== END 2021-02-04 16:17 | disposition home or self-care (01) | DRG 683 ==
LOC: MEDTELE 13:18 → ED 13:18 → SUATTDRO 21:29 → MEDTELE 22:12
PROVIDERS: ADMIT Internal Medicine; ATTEND Hospitalist